=== PATIENT | female | born 1945 | race Caucasian/White ===

== ENCOUNTER 2024-04-28 07:59 | Inpatient (IN) | payer OTHER, SELFPAY ==
[2024-04-28] VITALS (49 sets, daily range): BP systolic 62–149; BP diastolic 25–104; BMI 26.2; BMI 28.9
--- NOTE | 2024-04-28 03:36 | DOWNTIME ---
There was a [employer] Downtime on 04/28/2024 from 0200 to 04/28/2024 at 0325 . Downtime documentation of patient's care, including medication administrations, has been reconciled in the electronic record per guidelines. Refer to the
patient's paper chart under the miscellaneous tab to see printed paper medication records and downtime forms.
--- NOTE | 2024-04-28 04:04 | ED.GENMED ---
History of Present Illness
General
Chief Complaint: Breathing Problem
Source: patient and previous hospital records (Previous hospitalization 2012 for bilateral pneumonia and COPD exacerbation. ED visit 2018 for leg injury, pain, found to have peroneal DVT.)
Exam Limitations: none
Time Seen by Provider: 04/28/24 03:57
Nursing documentation reviewed up to this point in time: agreed with
History of Present Illness
History of Present Illness:
This is a 78-year-old woman who resides at home. She has remote history of COPD, remote history of smoking and prior history of pneumonia requiring hospitalization 2011. She also has history of DVT left lower extremity 2018 after injury to her
ankle.
Along with history of COPD, she has history of osteoarthritis, hypertension, hyperlipidemia, restless leg syndrome, depression.
Her daily medications include omeprazole, fluoxetine, aspirin 325 mg, Advair, Toprol, Crestor, Requip, Altace, hydrochlorothiazide, as needed tramadol.
Prior history of smoking.
She presents with 2-day history of cough that has worsened with scant hemoptysis that began today along with right anterior lower rib pain that is much worse with deep breath and worse with cough. She denies fever nor chills. No sore throat nor
significant sinus congestion but does admit to mild clear rhinorrhea.
There is a family member at home reportedly suffering with pneumonia currently.
She denies recent travel. She denies leg pain or swelling. She complains of progressive shortness of breath especially over the past 24 hours.
Past History
Past History
ED Past Medical History: COPD, GERD, HTN, Hypercholesterolemia, Other (Restless leg syndrome; DVT left lower extremity 2018, bilateral pneumonia 2011) and Other (Osteoarthritis)
ED Past Surgical History: Gynecological (Hysterectomy)
Social History
Tobacco: Former smoker
Alcohol: Occasional
Drug: None
Personal:
Living: with family
Employment: Retired
Family History
Family History: Other (Noncontributory); Negative Early CAD or CAD
Phy Exam
Physical Exam
Physical Exam:
GENERAL: 78-year-old woman appears her stated age, appears in moderate distress, moderate tachypnea, intermittently wincing in pain with rare brief cough. Moderately hypoxic, improved with nasal cannula oxygen.
EYE: pupils equal and reactive. anicteric
NECK: Supple, nontender, no meningismus, no significant adenopathy. No JVD.
ENT: posterior pharynx is without injection, scant clear to pearly postnasal drip is noted, oral mucosa is dry. TM clear b/l, nares have scant clear rhinorrhea.
CARDIAC: Regular rhythm, tachycardic. no murmur.
LUNGS: Moderate respiratory distress, bilateral expiratory wheezing with fine rhonchi right lower lobe. Moderate tenderness palpation right anterolateral distal costal margin.
ABDOMEN: Soft, nondistended, without focal tenderness, no r/g, no cvat. normoactive BS.
NEUROLOGICAL: Alert and oriented x3, no focal neuro deficits.
SKIN: Warm and dry, normal color, skin intact. No rash.
MUSCULOSKELETAL: No C/C/E. peripheral pulses are full and equal b/l. No palpable tenderness.
PSYCH: Normal and appropriate interaction.
Scores
Heart Failure Risk
Heart Failure Risk Score: Not Applicable
Course
Orders/Labs/Results
Orders:
Orders
04/28/24 03:44
Electrocardiogram (*1) Urgent
Reason for Study: Other
Other Reason for Exam: Respiratory Distress
Cardiac Monitoring- Treatment ONCE
EKG- Treatment ONCE
IV Insert/Care/Rem.- Treatment PRN
O2 Therapy [RESP] Urgent
Titrate/Wean O2 to maintain O2 sat greater than (%): 93
Special Instructions: TO MAINTAIN CONTINUOUS O2 SATS >/= 93%
Pulse Ox/cont/shift [RESP] Urgent
Quantity: 1
Special Instructions: continuous pulse ox
04/28/24 03:45
Complete Blood Count/With Diff Urgent
04/28/24 04:03
Ipratropium/Albuterol Sulfate [Duoneb] 3 ml INH R NOW STA
Morphine Sulfate 4 mg IV NOW STA
04/28/24 04:04
CR Chest Portable - 1 View Urgent
Comment:
Reason For Exam: cough, severe pleuritic R CP, hypoxia
Reason Study Needs to be Portable: Patient Unstable
04/28/24 04:16
CT Chest Pe Study Urgent
Comment:
Reason For Exam: severe pleuritic R CP, hemoptysis, hypoxia
0.9% Sodium Chloride 1000 ml [Nss] 1,000 ml IV BOLUS
04/28/24 04:24
COVID-19 Antigen Urgent
Source: Nasal Swab
Comprehensive Metabolic Panel Urgent
Lactic Acid Urgent
NT-proBNP Urgent
Troponin I Urgent
Influenza A+B Rapid Molecular Urgent
SHAWANDA Source: Nasal Swab
Specimen Description:
Respiratory Syncytial Virus Urgent
SHAWANDA Source: Nasal Swab
Specimen Description:
Date Specimen was Collected: 04/28/24
Time Specimen was Collected: 04:04
04/28/24 05:02
Morphine Sulfate 4 mg .ROUTE .STK-MED ONE
04/28/24 05:06
Morphine Sulfate 4 mg IV NOW STA
04/28/24 05:[address] Non Medication Order As Directed
Physician Order: PTT 6 hours after initial start of Heparin infusion
Above order entered?: Yes
04/28/24 05:52
PTT Urgent
Comment: Obtain baseline before beginning heparin infusion if not already collected
04/28/24 06:00
Heparin 50174 Units/250 ml 25,000 units in 250 ml IV PER PROTOCOL
Weight to be used for heparin protocol in kilograms (kg):: 73.6
Protocol:: DVT/PE
PTT Goal Range to be used:: PTT 73 to 111 seconds
Order type:: Initial
INITIAL Infusion Dose (UNITS/KG/hr) & then follow protocol:: 18 units/kg/hr
Infusion Dose in UNITS/hr & then follow protocol (UNITS/hr):: 1,300
INFUSION RATE in mL/hr & then follow protocol (mL/hr):: 13
For DVT/PE algorithm, re-bolus for low PTT?: Yes
PTT less than or equal to 64 seconds:: Re-bolus 80 units/kg (max 10,000units). Increase by 300 units/hr
(+ 3mL/hr)
PTT 64.1 to 72.9 seconds:: Re-bolus 40 units/kg (max 5,000 units). Increase by 200 units/hr
(+ 2mL/hr)
PTT 73 to 111 seconds:: Target Range. No change in rate.
PTT 111.1 to 130.9 seconds:: Decrease rate by 200 units/hr (- 2 mL/hr)
PTT 131 to 199.9 seconds:: HOLD for 1 hr. Then decrease by 200 units/hr (- 2mL/hr)
PTT greater than or equal to 200 seconds:: HOLD for 2 hrs & Notify Provider. Then decrease by 300 units/hr
(- 3mL/hr)
Lab follow-up:: Each change, PTT q6h until 2 consecutive are therapeutic. Then
PTT daily.
04/28/24 06:08
Morphine Sulfate 4 mg IV NOW STA
04/28/24 06:11
Admit/Transfer Patient As Directed
Co-Sign Provider:
Level of Care: Inpatient admission
Assign to:: ICU
Physician / Group: Hospitalist
Diagnosis: Pulmonary embolism
Reason for Hospitalization: Pulmonary embolism
Expected length of stay greater than two midnights?: Yes
ELOS- Estimated Length of Stay in days: 2
I certify the patient meets the requirements for IP care: Yes
04/28/24 06:12
PRN Pain Medication Management As Directed
May give lesser potent ordered pain med per pt: Yes
preference::
Protocol:: Medication orders for pain may be administered in a
manner that supports deferring to patient preference
when the pt is:
- Requesting an ordered lesser potent pain medication.
Least to most potent pain medications are defined
as: acetaminophen < NSAID < tramadol < opioids
(morphine, oxycodone, hydromorphone).
- Requesting a lesser dose of the same medication IF
ORDERED.
- Requesting a less intrusive route of administration
if both routes are prescribed by the provider (PO <
IV).
04/28/24 06:13
Heparin 5,900 units IV NOW STA
04/28/24 06:14
Code Status As Directed
Resuscitation Status: Do not resuscitate
Reached after discussion with pt or family/Healthcare POA: Yes
DNR Bracelet Application ONCE
04/28/24 06:15
Heparin 40473 Units/250 ml 25,000 units in 250 ml IV PER PROTOCOL
Weight to be used for heparin protocol in kilograms (kg):: 73.6
Protocol:: DVT/PE
PTT Goal Range to be used:: PTT 73 to 111 seconds
Order type:: Initial
INITIAL Infusion Dose (UNITS/KG/hr) & then follow protocol:: 18 units/kg/hr
Infusion Dose in UNITS/hr & then follow protocol (UNITS/hr):: 1,300
INFUSION RATE in mL/hr & then follow protocol (mL/hr):: 13
For DVT/PE algorithm, re-bolus for low PTT?: Yes
PTT less than or equal to 64 seconds:: Re-bolus 80 units/kg (max 10,000units). Increase by 300 units/hr
(+ 3mL/hr)
PTT 64.1 to 72.9 seconds:: Re-bolus 40 units/kg (max 5,000 units). Increase by 200 units/hr
(+ 2mL/hr)
PTT 73 to 111 seconds:: Target Range. No change in rate.
PTT 111.1 to 130.9 seconds:: Decrease rate by 200 units/hr (- 2 mL/hr)
PTT 131 to 199.9 seconds:: HOLD for 1 hr. Then decrease by 200 units/hr (- 2mL/hr)
PTT greater than or equal to 200 seconds:: HOLD for 2 hrs & Notify Provider. Then decrease by 300 units/hr
(- 3mL/hr)
Lab follow-up:: Each change, PTT q6h until 2 consecutive are therapeutic. Then
PTT daily.
04/28/24 06:56
EKG [Electrocardiogram (*1)] Urgent
Reason for Study: Abnormal EKG
04/28/24 06:57
EKG- Treatment ONCE
04/28/24 07:00
0.9% Sodium Chloride 500 ml [Nss] 500 ml IV BOLUS
04/28/24 07:02
Adenosine [Adenocard] 18 mg .ROUTE .STK-MED ONE
04/28/24 07:04
HYDROmorphone [Dilaudid] 0.5 mg .ROUTE .STK-MED ONE
HYDROmorphone [Dilaudid] 0.5 mg IV NOW STA
04/28/24 07:06
Adenosine [Adenocard] 6 mg IV NOW STA
04/28/24 07:07
Adenosine [Adenocard] 12 mg IV NOW STA
04/28/24 07:09
Diltiazem 125 mg/125 ml Nss [Cardizem] 125 mg in 125 ml .ROUTE .STK-MED
Diltiazem HCl [Cardizem] 25 mg .ROUTE .STK-MED ONE
04/28/24 07:10
Diltiazem HCl [Cardizem] 15 mg IV NOW STA
04/28/24 07:26
0.9% Sodium Chloride 500 ml [Nss] 500 ml IV BOLUS
04/28/24 07:30
0.9% Sodium Chloride 1000 ml [Nss] 1,000 ml IV 150 mls/hr
Diltiazem 125 mg/125 ml Nss [Cardizem] 125 mg in 125 ml IV PER PROTOCOL
Initial dose in mg/hr, then titrate:: 5
Titrate to keep:: Heart rate 80-100 bpm
Titrate by mg/hr:: 5 mg/hr
Frequency of titrations (minutes):: 15
Maximum dose in mg/hr:: 15
04/28/24 07:41
Dexamethasone Sod Phosphate [Decadron] 6 mg IV NOW STA
Piperacillin/Tazo 3.375 Gram [Zosyn] 3.375 gram in 50 ml IV NOW
04/28/24 07:46
Doxycycline 100 mg IVPB NOW Doxycycline Hyclate [Vibramycin] 100 mg 0.9% Sodium Chloride 250 ml [Nss] 250 ml IV NOW
04/28/24 07:47
Arterial Blood Gas Urgent
%Oxygen/Room Air: NRB
04/28/24 07:48
PICC Line As Directed
04/28/24 08:00
Piperacillin/Tazo 3.375 Gram [Zosyn] 3.375 gram in 50 ml IV Q6H
04/28/24 12:15
PTT Urgent
Comment: 6 hour heparin PTT check
Abnormal Lab Results
04/28/24 04/28/24 04/28/24
03:45 04:24 05:52
WBC 23.8 H 10^3/uL
(4.8-10.8)
MCH 31.9 H pg
(27.0-31.0)
Abs Immat Gran (auto) 0.1 H 10^3/uL
(0-0.05)
Absolute Neuts (auto) 18.7 H 10^3/uL
(1.4-6.5)
Absolute Monos (auto) 2.7 H 10^3/uL
(0.1-0.6)
Neutrophils % 78.5 H %
(42.2-75.2)
Lymphocytes % 9.2 L %
(20.5-51.1)
Monocytes % 11.4 H %
(1.7-9.3)
APTT 38.0 H Sec
(23.4-35.0)
Carbon Dioxide 20 L mmol/L
(22-30)
BUN 28 H mg/dl
(7-17)
Creatinine 1.3 H mg/dL
(0.6-1.0)
Glucose 134 H mg/dl
(70-99)
Lactic Acid 2.1 H mmol/L
(0.7-2.0)
Alkaline Phosphatase 137 H U/L
(38-126)
Troponin I 0.090 H* ng/ml
04/28/24 03:45
04/28/24 04:24
Vital Signs
Initial and Last Documented VS:
Initial Vital Signs
Temp Pulse Resp BP Pulse Ox
98.2 F 116 16 118/83 100
04/28/24 01:34 04/28/24 01:34 04/28/24 01:34 04/28/24 01:34 04/28/24 01:34
Last Documented Vital Signs
Temp Pulse Resp BP Pulse Ox
98.2 F 202 19 106/69 99
04/28/24 01:34 04/28/24 07:11 04/28/24 06:30 04/28/24 07:11 04/28/24 06:30
MDM/Problems Addressed
Differential Diagnosis Includes:
Concern for pneumonia, pleurisy, PE, pleural effusion, chest wall strain, exacerbation of COPD. CHF, ACS is much less likely.
Although afebrile and patient denies recent fever there is some concern for sepsis with pneumonic process.
Will give DuoNeb nebulizer, IV morphine for pain and will check portable chest x-ray. Labs are pending. Will check COVID, influenza and RSV. Will add lactic acid.
With prior history of DVT in 2018, pleuritic right-sided chest pain along with hemoptysis, must consider PE/pulmonary infarct thus if chest x-ray underwhelming we will plan for CT of the chest.
Chronic conditions affecting care: COPD
*Radiology
Radiology exam reviewed: preliminary read by ED provider (Chest x-ray shows mild interstitial disease inferiorly questionable small patchy infiltrate right lower lobe but otherwise unremarkable.) and radiology read reviewed
*Pulse Oximetry
Patient hypoxic: yes
*EKG
Interpreted by ED Provider?: Yes
Interpretation: abnormal
Comparison EKG: no changes (Baseline artifact but overall unchanged from previous April 2021)
Rate: tachycardiac
Rhythm: sinus and PVC's
Dahlgren: left axis deviation
Interval: normal interval
QRS Pattern: normal QRS
Ischemia: non-specific ST changes
*Visitor Services Representative Interpretation
Rate: tachycardiac
Interpretation: abnormal
Rhythm: sinus
*Critical Care Note
Total Time (30-74mins, 75-104mins- exclusive of procedures): 100
comment:
Critical care statement: A total of 100 minutes of critical care time was provided for this patient. This includes management of unstable vital signs, evaluation of the patient at bedside, reviewing the patient's pertinent medical records,
discussion with consultants, review of old EKGs and review of pertinent medical records. This time with separate from time utilized to perform the aforementioned documented procedures
Update Note
Update Note:
CT of the chest/preliminarily read by myself shows bilateral PEs. No evidence of saddle embolus but with mildly elevated troponin 0.09, concern for right heart strain thus will initiate IV heparin.
Case discussed with hospitalist.
Awaiting official CT report. May require PERT alert/IR consult for potential thrombectomy.
She remains moderately tachypneic with pulse ox 93% on 4 to 6 L nasal cannula. We have transition to nonrebreather mask, now much more comfortable.
Much more comfortable with IV morphine as well.
06:05
CAT scan results shows extensive bilateral PEs with moderate to severe right heart strain. PERT alert initiated. Case discussed with vinyl installer and I have texted IR�IR aware.
IV heparin initiated.
07:30
Patient has developed tacky arrhythmia, initially sinus tach versus rapid A-fib. Briefly broke to normal sinus rhythm but has returned with heart rate 170-190 accompanied hypotension.
Heart rate briefly slowed with IV Adenocard but has resumed tachyarrhythmia which now appears to be A-fib in nature.
After IV fluid bolus of 500 cc blood pressure has improved.
Hospitalist at bedside.
IV Cardizem bolus and drip initiated.
Several text's to IR: vinyl installer has been notified of change in condition, has now become significantly unstable.
ED Attending Note
-
Portions of this chart may have been created with voice recognition software.� Occasional wrong word or��sound alike� substitutions may have occurred due to the inherent limitations of voice recognition software.
Discharge Plan
Departure
Patient Disposition: Admit
Date of Disposition: 04/28/24
Time of Disposition: 05:51
Admit to doctor: Darrell
Presentation/result/management discussed w/ accepting MD/DO: Hospitalist
Condition: Serious
Discharge Problem:
Pulmonary embolism, bilateral
Prescriptions:
No Action
ropinirole 1 MG tablet
5 mg PO HS
metoprolol succinate 100 MG tablet extended release 24 hr
100 mg PO DAILY
fluoxetine 10 MG capsule
10 mg PO DAILY
hydrochlorothiazide 25 MG tablet
25 mg PO DAILY
ramipril 10 MG capsule
10 mg PO DAILY
rosuvastatin 10 MG tablet
10 mg PO QPM
Referrals:
UNKNOWN - PT DOES,NOT KNOW [Family Provider] -
Interventions
Interventions:
*Risk Screen - Suicide Last Done: 04/28/24 01:34
*General Assessment Last Done: 04/28/24 03:53
*Neglect/Abuse Screening Last Done: 04/28/24 01:34
*ED COVID-19 Vaccine History Last Done: 04/28/24 03:53
ED- Cardiac Assessment Last Done: 04/28/24 03:50
ED- Pulmonary Assessment Last Done: 04/28/24 03:50
Discharge Date and Time
Print Language: NICARAGUAN
[2024-04-28] MEDS: MORPHINE SULFATE 4 MG IV ×3 (04:07→06:18)
[2024-04-28] MEDS: DUONEB 3 ML INH ×2 (04:07→20:22)
[2024-04-28 04:12] LABS: % Basophils 0.4 % (0-2); % Immature Granulocytes 0.5 % (0-0.5); % Lymphocytes 9.2 % (20.5-51.1); % Monocytes 11.4 % (1.7-9.3); % Neutrophils 78.5 % (42.2-75.2); Absolute Basophils 0.1 10^3/uL (0-0.2); Absolute Immature Granulocytes 0.1 10^3/uL (0-0.05); Absolute Lymphocytes 2.2 10^3/uL (1.2-3.4); Absolute Monocytes 2.7 10^3/uL (0.1-0.6); Absolute Neutrophils 18.7 10^3/uL (1.4-6.5); Hematocrit 45.1 % (37.0-47.0); Hemoglobin 15.1 g/dL (12.0-16.0); Mean Corp Hgb Conc. 33.5 g/dL (33.0-37.0); Mean Corpuscular Hgb 31.9 pg (27.0-31.0); Mean Corpuscular Volume 95.1 fL (81.0-99.0); Mean Platelet Volume 9.4 fL (7.4-10.4); Nucleated Red Blood Cells % 0 %; Platelet Count 263 10^3/uL (130-400); Red Blood Cell Count 4.74 10^6/uL (4.20-5.40); Red Cell Dist. Width 12.8 % (11.5-14.5); White Blood Cell Count 23.8 10^3/uL (4.8-10.8)
[2024-04-28] MEDS: NSS 1000 IV ×2 (04:31→12:00)
[2024-04-28 05:01] LABS: COVID-19 Antigen Negative (Negative)
[2024-04-28 05:04] LABS: Lactic Acid 2.1 mmol/L (0.7-2.0)
[2024-04-28 05:14] LABS: ALT (SGPT) 22 U/L (0-35); AST (SGOT) 22 U/L (14-36); Albumin 4.3 g/dl (3.5-5.0); Alkaline Phosphatase 137 U/L (38-126); Blood Urea Nitrogen 28 mg/dl (7-17); Calcium 9.9 mg/dl (8.4-10.2); Carbon Dioxide 20 mmol/L (22-30); Chloride 103 mmol/L (98-107); Estimated Creatinine Clearance 34 ml/min; Glucose 134 mg/dl (70-99); Potassium 3.6 mmol/L (3.5-5.1); Sodium 139 mmol/L (135-145); Total Protein 7.6 g/dl (6.3-8.2); eGFR 42.35
[2024-04-28 05:39] LABS: NT-proBNP 7360 pg/ml
[2024-04-28] MEDS: HEPARIN 5900 UNITS IV (06:12)
[2024-04-28] MEDS: HEPARIN 25000 UNITS/250 ML IV (06:14)
--- NOTE | 2024-04-28 06:43 | HPS.HSE ---
Family Physician
-
Family Physician: NOT KNOW UNKNOWN - PT DOES
Chief Complaint
-
Shortness of breath.
History of Present Illness
This is a 78-year-old with past medical history significant for COPD, hypertension, hyperlipidemia, restless leg presenting to the emergency department with 2-day history of cough, scanty mopped assist and chest pain.
Patient reports been in usual state of health up until 2 days ago when she started noticing cough productive of scanty mopped assist. There was no mucus production. She had no fevers or chills. She reports mild rhonrrhea. She denied feeling
congestion, postnasal drip headache, ear ache, nausea vomiting or diaphoresis. She reports that today the cough worsened and she developed right sided lower anterior chest pain that is worse with inspiration. She reports a family member with
suffering from pneumonia.
In ED she arrived with a BP of 149/101, p 114,and oxygen saturation of 89% on RA. ECG showed sinus tachycardia. Chest Xray with moderate atelectasis. CT with extensive bilateral pulmonary emboli involving all lobar branches, no embolus within the
main pulmonary trunk on either side, evidence of right heart strain and moderate centrilobular emphysema. PERT alert called. WBC 23.8, Lactate 2.1. BNP 2300.
Medical History
Past Medical History
Past Medical History: Reports COPD (not on home O2), GERD, HTN and Hypercholesterolemia
Additional Past Medical History:
Restless leg
Superficial venous thromboembolism
Past Surgical History: Reports Gynocological (Hysterectomy)
Social History
Tobacco: Former Smoker
Alcohol: Occasional
Drug: None
Personal: Single
Living: Alone
Employment: Retired
Family History
Family History: Not pertinent
Allergies / Home Medications
Allergies reflects when Allergies were last updated in [facility].
Home Medications with original date entered in [facility]
Allergy/Medication List:
Allergies
Allergy/AdvReac Type Severity Reaction Status Date / Time
codeine Allergy Unknown Verified 04/28/24 01:34
Home Medications
tkkyzzu-eadclceudjbvs-eujvzbvy 250 mg-250 mg-65 mg tablet (Excedrin Extra Strength) 2 ea PO PRN PRN migraines 07/24/11
ropinirole 1 mg tablet 5 mg PO HS 07/24/11
rosuvastatin 5 mg tablet 20 mg PO QPM 07/24/11
azelastine 137 mcg (0.1 %) nasal spray 1 spray intranasal BID 05/05/21
clobetasol-emollient 0.05 % topical cream 15 gm TP DAILY 05/05/21
yurnwhevyt-ouvnctcbbzvlghm-urlkuoermsskl 6.25 mg-30 mg-500 mg tablet 1 tab PO HS 05/05/21
fluoxetine 10 mg capsule 10 mg PO DAILY 05/05/21
hydrochlorothiazide 25 mg tablet 25 mg PO DAILY 05/05/21
meclizine 25 mg tablet 25 mg PO Q8HPRN PRN dizzy #15 tabs 05/05/21
methylprednisolone 4 mg tablets in a dose pack (Medrol (Amadou)) 4 tab PO . DIRECT 05/05/21
metoprolol succinate 100 mg tablet,extended release 24 hr 100 mg PO DAILY 05/05/21
omeprazole 20 mg capsule,delayed release 20 mg PO DAILY 05/05/21
ramipril 10 mg capsule 10 mg PO DAILY 05/05/21
rosuvastatin 10 mg tablet 10 mg PO QPM 05/05/21
tramadol 50 mg tablet 50 mg PO Q6HPRN PRN pain 05/05/21
Review of Systems
-
Constitutional: Reports No Symptoms
EENT: Reports No Symptoms
Respiratory: Reports Cough, Hemoptysis and Trouble Breathing
Cardiac: Reports Chest Pain
Abdomen/GI: Reports No Symptoms
: Reports No Symptoms
Musculoskeletal: Reports No Symptoms
Skin: Reports No Symptoms
Neurological: Reports No Symptoms
Endocrine: Reports No Symptoms
Hematologic/Lymphatic: Reports No Symptoms
Psych: Reports No Symptoms
Physical Exam
Vital Signs
Vital Signs
Temp Pulse Resp BP Pulse Ox
98.2 F 108 19 137/97 99
04/28/24 01:34 04/28/24 06:30 04/28/24 06:30 04/28/24 06:00 04/28/24 06:30
Physical Exam
General: Respiratory Distress and Pain
HEENT: NormoCephalic, Anicteric, Moist mucous membranes, Atraumatic and PERRLA
Respiratory: Clear and Accessory Resp Muscle Use
Cardiac: S1/S2, Regular Rhythm and Tachycardia
Breast: Deferred by me
GI: Soft, Non Distended and Normal Bowel Sounds
Rectal: Deferred by Provider
Genito-urinary: Deferred by me
Musculoskeletal: No Clubbing, No Cyanosis and No Edema
Skin: Warm
Neuro: AO x 3
Hematologic/Lymphatic: No Lymphadenopathy
Psych: Calm
Laboratory Results
-
04/28/24 03:45
04/28/24 04:24
Laboratory Results
APTT 38.0 Sec (23.4-35.0) H 04/28/24 05:52
Lactic Acid 2.1 mmol/L (0.7-2.0) H 04/28/24 04:24
Total Bilirubin 1.0 mg/dl (0.2-1.3) 04/28/24 04:24
AST 22 U/L (14-36) 04/28/24 04:24
ALT 22 U/L (0-35) 04/28/24 04:24
Alkaline Phosphatase 137 U/L (38-126) H 04/28/24 04:24
Troponin I 0.090 ng/ml H* 04/28/24 04:24
Data Reviewed
-
Diagnostic Radiology: Image Personally Visualized and interpreted
CT Scan: Report Reviewed by me
Medical Tests (Nuc Med, Echo, EKG etc): Image Personally Visualized and interpreted
Lab Data: Labs Reviewed by me
Old Records: Reviewed
Impression/Plan
-
IMPRESSION:
Patient with shortness of breath and dyspnea on exertion chest pain found to have hypoxia, bilateral PE with right heart strain on CT scan. She is on increasing oxygen requirements.
PLAN:
Bilateral PE - submassive pe with elevated troponin and right heart strain. High oxygen requirements likely due to ongoing pulm infarct. HD stable.
- PERT alert called
- admit to ICU
- started heparin gtt
- non-rebreather due to high work of breathing, nrb to keep sat >95 and RR < 30, wean as tolerated
- pain control with IV morphine
- gi ppx
- check LE u/s when more stable
- possible procedure, NPO for now
- holding antihypertensives today to restart tomorrow am
- no obvious risk factors and no provoking events. Patient reports prior SVT, not anticoagulated.
- pulm/commercial title examiner and IR aware.
Non-ischemic myocardia injury suspected - Trop 0.09
- trend troponins
- echo
- continue statin
COPD - negative flu/covid, leukocytosis w/o obvious infiltrates
- prn nebs
Code status - DNR
[2024-04-28] MEDS: DILAUDID 0.5 MG IV (07:05)
[2024-04-28] MEDS: ADENOCARD 6 MG IV (07:06)
[2024-04-28] MEDS: CARDIZEM 15 MG IV (07:11)
[2024-04-28] MEDS: CARDIZEM 125 IV (07:13)
[2024-04-28] MEDS: NSS 500 IV ×3 (07:26→08:18)
--- NOTE | 2024-04-28 07:54 | W.PN.HOSP.TC ---
Today's Communication/Plan
-
Verify medicines
Place a midline
IV steroids
IV antibiotics
Heart rate control
Thrombosis
Pain control
Assessment / Plan
Assessment / Plan
78-year-old female admitted overnight with shortness of breath. She has had a cough also had some hemoptysis. Patient stated that her granddaughter was sick with pneumonia
Patient was diagnosed with bilateral PE in the ER. She then went into SVT required 2 doses of adenosine and then rhythm looked like A-fib was given diltiazem bolus as well as a drip was started. Patient complained of right-sided rib pain and was
very short of breath. IV fluids were started.
CT chest-extensive bilateral PE involving lobar branches no embolism in the main pulmonary trunk or either side. Right heart strain. Moderate centrilobular emphysema. Bibasilar groundglass opacities related to subsegmental atelectasis. Trace
right pleural effusion.
On examination tachypneic
Bilateral rales noted
Cardiovascular system S1-S2 tachycardic
Abdomen soft and nontender
No pedal edema
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
# Acute hypoxic respiratory failure
Bilateral pulmonary embolism with right heart strain
Currently on a nonrebreather
CT scan reviewed with interventional radiology feels like PE is not saddle or occlusive and more peripheral not sure if she will be a candidate for thrombectomy. Thrombolysis possible.
Other reasons for her hypoxia shortness of breath could be pain, infection with a white count of 23K, COPD exacerbation.
Patient received morphine 3 mg along with half milligram of Dilaudid. Continue pain control.
Start steroids Decadron 6 mg IV now with 4mg every 6 to treat COPD exacerbation.
Zosyn and doxycycline ordered.
With elevated white count blood cultures ordered
Sputum culture if possible
COVID-19, influenza and RSV negative
Venous Dopplers
Check ABG
On heparin drip
Pulmonary consulted
# SVTs versus A-fib
Rates are too rapid to comment
Patient received adenosine x 2. Broke and went into A-fib
On diltiazem drip
On heparin drip
Follow troponin
Continue metoprolol
Check echo when heart rate is better
Cardiology has been consulted
# Troponin elevation likely secondary to nonischemic myocardial injury from PE
# Acute kidney injury-unclear if she also has CKD . IV fluids. Follow creatinine
# Mild lactic acidosis-IV fluids. Recheck
# History of hypertension-Hold off on ramipril and hydrochlorothiazide. Continue metoprolol. Verify meds
# Depression-Hold fluoxetine until verified
# Restless leg syndrome-Hold off on Requip until verified
# Hyperlipidemia-Hold off on statin and verified
# Emphysema
# GERD-added IV PPI
# Herniated disc L5-S1
# History of DVT in the past
# DVT prophylaxis-heparin IV
# Full code
Discussed with ER nursing, ER attending, interventional radiology, mobile pet groomer
CT and EKG reviewed by me
Patient's son updated in detail. He is aware that mom is critically ill at this point with multiple medical problems.
Total Critical Care Time 40 minutes. I was immediately available to the patient and staff. I personally examined, reviewed labs, diagnostic images/reports, interpretations, treatment plans, discussed patient care with other providers and family
or caregivers (if patient is unable to make decisions), entered orders as appropriate and documented the medical record.
Anticipated Discharge: > 48 hours
Subjective/Interval History
-
Date of Service: April 28, 2024
Objective Data
-
Labs:
Laboratory Results
04/28/24 04/28/24 04/28/24
03:45 04:24 05:52
WBC 23.8 H
Hgb 15.1
Hct 45.1
Plt Count 263
APTT 38.0 H
HCO3
Sodium Cancelled 139
Potassium Cancelled 3.6
Chloride Cancelled 103
Carbon Dioxide Cancelled 20 L
BUN Cancelled 28 H
Creatinine Cancelled 1.3 H
Glucose Cancelled 134 H
Calcium Cancelled 9.9
Total Bilirubin Cancelled 1.0
AST Cancelled 22
ALT Cancelled 22
Alkaline Phosphatase Cancelled 137 H
04/28/24 04/28/24
07:47 12:15
WBC
Hgb
Hct
Plt Count
APTT Pending
HCO3 Pending
Sodium
Potassium
Chloride
Carbon Dioxide
BUN
Creatinine
Glucose
Calcium
Total Bilirubin
AST
ALT
Alkaline Phosphatase
Vital Signs:
Vital Signs
Temp Pulse Resp BP Pulse Ox
98.2 F 167 26 114/88 93
04/28/24 01:34 04/28/24 07:45 04/28/24 07:45 04/28/24 07:46 04/28/24 07:42
[2024-04-28] MEDS: TORADOL 15 MG IV (08:01)
[2024-04-28] MEDS: DILAUDID 1 MG IV (08:05)
[2024-04-28] MEDS: DECADRON 6 MG IV (08:07)
--- NOTE | 2024-04-28 08:27 | PTCARENOTE ---
07:58 admitted from ER Admitted DX B/L PE .
Arrived on NRM 15L; Heparin at via Lower FA; Cardizem 15ml via RT AC .
RT side pleural like pain 10/10 pain scale level . Dilaudid 0.5 +Toradol +Demadex adm ; Post medications pt reports some pain improvement
VS: 98/[address] RR 30's 95%
[2024-04-28 08:49] LABS: B.E. -10.1 mmol/L; HCO3 16.7 mmol/L (21-28); O2 Saturation % 96.7 % (94-98); PCO2 39 mmHg (32-35); PO2 80 mmHg (83-108); pH 7.24 (7.35-7.45)
[2024-04-28] MEDS: OFIRMEV 100 IV (09:23)
--- NOTE | 2024-04-28 10:17 | CON.INTV ---
Consultation
Consultation Request
Date/Time Consultation Requested: 04/28/2024
Date/Time Consultation Performed: 04/28/2024
Requesting Provider: Dr. Rocha
Performing Provider: Dr. Cameron Su
Reason for Consultation: Acute submassive pulmonary embolism
Medical History
-
History of Present Illness:
78-year-old woman with past medical history significant for COPD/emphysema, hypertension, hyperlipidemia, restless leg syndrome presented to the emergency room with 2-day history of cough, chest pain and shortness of breath. Previous to this she
was in her usual state of health. Denies significant hemoptysis. Denies fevers or chills. Denies expiratory wheezing. Denies leg edema. Her chest pain became severe on 04/28/2024, worsened with deep inspiration. What prompted her to come to
the emergency room. She reports that a family member is having pneumonia.
Found to be hypertensive, tachycardic, and significant distress, oxygen saturation 89% in the emergency room. EKG with sinus tachycardia.
Chest x-ray showed bibasilar atelectasis. CT chest to rule out pulmonary embolism confirmed bilateral pulmonary embolism without saddle component. Possible RV dysfunction.
Mild troponin leak. Increased proBNP.
PERT alert was called in, I did discuss with emergency room to start heparin drip immediately. Under evaluation for possible thrombolysis.
Reviewing CT angiogram has no saddle component. Patient is in distress, tachycardic due to significant pleuritic type chest pain.
Receiving narcotics for pain.
On a nonrebreather mask for comfort, her saturations are above 90%.
proBNP is elevated as well as mild troponin leak.
Past Medical History
Past Medical History: Other (See assessment and plan)
Social History
Tobacco: Former Smoker
Alcohol: Occasional
Drug: None
Personal: Single
Living: Alone
Employment: Retired
Family History
Family History: Unable to Obtain
Allergies / Home Medications
Allergies
Allergy/AdvReac Type Severity Reaction Status Date / Time
codeine Allergy Unknown Verified 04/28/24 01:34
Home Medications
�Medication �Instructions �Recorded �Confirmed �Last Taken �Type
ropinirole 1 mg tablet 5 mg PO HS 07/24/11 05/05/21 07/23/11 History
fluoxetine 10 mg capsule 10 mg PO DAILY 05/05/21 05/05/21 Unknown History
hydrochlorothiazide 25 mg tablet 25 mg PO DAILY 05/05/21 05/05/21 Unknown History
metoprolol succinate 100 mg 100 mg PO DAILY 05/05/21 05/05/21 Unknown History
tablet,extended release 24 hr
ramipril 10 mg capsule 10 mg PO DAILY 05/05/21 05/05/21 Unknown History
rosuvastatin 10 mg tablet 10 mg PO QPM 05/05/21 05/05/21 Unknown History
Review of Systems
-
Unable to Obtain full review of systems at this time due to: Acuity (Her main complaint was pleuritic type chest pain and difficulty taking a deep breath.)
Vitals / Labs / Diagnostic Testing
Vital Signs
Temp Pulse Resp BP Pulse Ox
98.6 F 183 21 96/72 93
04/28/24 08:00 04/28/24 08:32 04/28/24 08:32 04/28/24 08:32 04/28/24 08:41
Lab Data
04/28/24 03:45
04/28/24 04:24
Laboratory Results
04/28/24 04/28/24
05:52 08:36
APTT 38.0 H
pH 7.24 L
pCO2 39 H
pO2 80 L
HCO3 16.7 L
O2 Delivery Level
Microbiology
04/28/24 04:24 Nasal Swab Influenza Types A & B ([facility]ANIA) - Final
Negative for Influenza A & B, NAAT
Negative results must be combined with clinical observations
and patient history.
Nucleic Acid Amplification test (NAAT)performed on the
[employer] platform.
04/28/24 04:24 Nasal Swab Respiratory Syncytial Virus Culture - Final
Negative for Respiratory Syncytial Virus.
A false negative result may be obtained with a specimen
collected early in the acute phase. If symptoms persist, a
new specimen should be tested.
Diagnostic Testing:
Physical Exam
-
HEENT: Normocephalic
Cardiovascular: S1/S2 and Other (Tachycardic)
Respiratory: Clear and Other (Difficult exam due to significant pleuritic type chest pain with splinting.)
GI: Soft and Non Distended
Neurology: Awake, Alert and Other (Follows commands)
Skin: Warm
General: Respiratory Distress (Significant due to pleuritic type chest pain)
Assessment
-
78-year-old woman with past medical history noted, admitted through the emergency room with cough, right-sided pleuritic type chest pain, mild hypoxemia, shortness of breath for the last 2-day. Started acutely. She was on her previous normal state
of health prior to this.
Acute hypoxemic respiratory failure due to submassive pulmonary embolism-currently on nonrebreather mask
Positive troponin
Positive proBNP
Sinus tachycardia on EKG
CT chest reviewed: Reviewed, bilateral segmental pulmonary embolism. No saddle component. Evidence for RV dysfunction. Right lower lobe abnormality suggestive of possible pulmonary infarct versus pneumonia.
Severe right-sided pleuritic type chest pain due to likely pulmonary infarct
Cannot rule out pneumonia: Leukocytosis/coughing-sick contact at home.
Metabolic acidosis-mildly increased lactic acid
Leukocytosis
Acute kidney injury
Conditions present prior admission:
GERD
Hypertension
Hypercholesterolemia
Emphysema/COPD-not on inhalers
Restless leg syndrome
Previous superficial vein thrombosis in the past
Former smoker
History of hysterectomy
History of fatty liver
Denies family history of clotting.
-
Assessment and plan:
Patient is critically ill, transferred to the ICU for close monitoring.
In significant distress due to severe right-sided pleuritic type chest pain.
Tachycardic but not hypotensive.
On a nonrebreather mask for comfort.
Pulse ox is 99%.
-
Case has been discussed with interventional radiology: No indication for thrombectomy as there is no saddle component.
Patient has a high risk situation-increased troponin/increased proBNP..
Consider heparin drip for now per protocol. Follow PTT.
May consider catheter directed thrombolysis if tachycardia is persistent despite pain control.
Echocardiogram is pending-evaluate RV function.
Obtain lower extremity Dopplers
Cardiology has been consulted, case discussed.
-
Patient has metabolic acidosis with mild increased lactic acid-unclear whether this is related to pulmonary infarct versus sepsis.
Agree with antibiotics to treat community-acquired pneumonia
Will send for cultures
Continue IV fluids
Repeat BMP and lactic acid later today
-
Continue oxygen supplementation.
Patient has history of COPD/emphysema-difficult pulmonary exam due to splinting and pain.
For now agree with steroids but low threshold to discontinue if she clinically improved without bronc spasm.
She did receive a nebulizer in the emergency room. Hold for now, limit beta agonist due to tachycardia.
-
Ongoing sinus tachycardia due to pain and likely pulmonary embolism.
Hold off on Cardizem or beta-blockers for now, this is compensatory.
EKG with narrow complex.
Cardiology following. Discussed, no indication for any specific therapy other than support and anticoagulation.
-
Analgesia with narcotics, Dilaudid as needed.
IV Tylenol as needed
1 dose of Toradol was given
Will continue to monitor respiratory status closely.
ABG suggest some degree of respiratory acidosis but patient is mentating well, has good respiratory effort.
Not a candidate for noninvasive mechanical ventilation
Will place end-tidal CO2 and monitor closely.
-
High risk situation.
-
Case has been discussed with primary team, interventional radiology, cardiology.
Multiple bedside evaluations by myself due to her tachycardia, pain and instability.
-
Critical care statement: A total of 80 minutes of critical care time was provided for this patient today. This includes management of unstable vital signs, evaluation of the patient at bedside, reviewing the patient's pertinent medical records
including ventilator settings, arterial blood gases, radiographs, microbiology, laboratory evaluations and discussion with primary team, critical care nursing, and respiratory therapy.
--- NOTE | 2024-04-28 10:48 | W.PN.UPDATE ---
Update Note
Progress Note Update
Patient reevaluated.
Her pain has improved. She looks more comfortable.
Remains tachycardic with narrow complex.
Apparently she was started on Cardizem, will discontinue. Heart rate is compensatory.
Wait for echocardiogram.
I will discuss with Dr. Saxena possibility of catheter directed thrombolysis.
I have discussed with her daughter and son at the bedside. Extensive discussion regarding current situation, images reviewed with them.
For now continue with current care
-
Additional critical care time 20 min
[2024-04-28] MEDS: VIBRAMYCIN 260 MG IV ×2 (10:59→19:32)
[2024-04-28 11:00] LABS: Lactic Acid 1.5 mmol/L (0.7-2.0)
--- NOTE | 2024-04-28 11:07 | PTCARENOTE ---
Blood culture x 2 send collected from two different sites. LA and Troponin send results pending. Cardizem off per current order BP 80/59 ST 148; RR 17 POX 96%NRM . AAO x3 Pain Right ribs 2/10 pain scale level. CO2 18
[2024-04-28 11:15] LABS: Troponin I 0.106 ng/ml
--- NOTE | 2024-04-28 11:41 | PTCARENOTE ---
SBP 78 Cardizem off. NSS 500 ML bolus adm
[2024-04-28] MEDS: STERILE WATER FOR INJECTION 10 ML IV (12:08)
[2024-04-28] MEDS: ROCEPHIN 1000 MG IV (12:09)
[2024-04-28 13:36] LABS: APTT > 200 Sec (23.4-35.0)
[2024-04-28] MEDS: DECADRON 4 MG IV ×2 (14:22→19:31)
--- NOTE | 2024-04-28 14:42 | W.PN.UPDATE ---
Update Note
Progress Note Update
Multiple discussions with interventional radiology regarding this patient.
Echocardiogram noted, hyperdynamic, normal LVEF. RV function is normal but it is dilated. Moderate pulmonary hypertension.
Heart rate has improved down to 84.
Patient is sleepy but arousable. Has been getting narcotics for pain.
Pleuritic type chest pain much better, respiratory effort improved. Clear lung exam without bronchospasm.
Given improvement on hemodynamics, heart rate and clinical situation we have opted to follow her clinically on heparin drip.
If there is any clinical deterioration then we may consider catheter directed lysis.
Dr. Su updated daughter and son earlier today.
-
Continue end-tidal CO2 monitoring
-
Continue oxygen supplementation. Nonrebreather mask has been discontinued.
-
Additional critical care time 35 minutes
--- NOTE | 2024-04-28 14:45 | W.PN.UPDATE ---
Update Note
Progress Note Update
LLE DVT -already on heparin 2/2 DVT, cont current treatment
--- NOTE | 2024-04-28 15:07 | CON.CAR ---
Addendum entered and electronically signed by Cr Álvarez MD 04/28/24 17:07:
I saw and examined the patient on morning rounds.
The Human Resources Office Assistant's note was reviewed and I agree with the note.
Comment: Briefly, 78-year-old woman presenting with hemoptysis and pleuritic type chest pain noted to have bilateral PEs and subsequently developed rapid atrial fibrillation
Patient was admitted to the medical ICU for further management where she was maintained on heparin drip for treatment of PE as well as supplemental oxygen
Evidence of right heart strain by echo with hypokinesis of the lateral right ventricular wall but right ventricle is only mildly dilated. Mildly elevated pulmonary pressures with PASP estimated at 46 mmHg.
Troponin is mildly elevated in keeping right heart strain, suspect this is nonMI troponin elevation
Heart rates have been significantly elevated in atrial fibrillation despite diltiazem drip
Suspect that elevated heart rate is somewhat compensatory, would allow for tachycardia in the short-term
Can consider direct-current cardioversion prior to discharge if A-fib persists
Continue IV heparin for cardioembolic prophylaxis
Rest per Pastora De eLon
Original Note:
Consultation
Consultation Request
Date/Time Consultation Requested: 04/28/24
Date/Time Consultation Performed: 04/28/24
Requesting Provider: Dr. Marino
Performing Provider: Dr. Álvarez
Reason for Consultation: PE, rapid Afib
Medical History
-
History of Present Illness:
Patient came to ER early this morning with complaints of hemoptysis and pain with deep inspiration and was admitted with PE, cardiology is now consulted for an episode of A-fib. Patient lives independently and sees her PCP for an annual physical
and has a h/o COPD, but does not see a reducing salon attendant. She had been coughing for a few days prior to admission and someone in her home has PNA. She noted that at times when coughing there was some blood, but then early this morning she had pain on
her right side of her chest with deep breath and cough and she thought she may have pneumonia. In ER the CT of her chest showed evidence of bilateral PEs, but no saddle PE. While in ER patient went into SVT with a heart rate up to 190 and
was hypotensive. Patient was given adenosine 6 mg IV x 1 and then 12 mg IV x1 which slowed her rapid rhythm and looked more like A-fib. She was then started on a Cardizem drip. Patient does not see a application integration architect and there is no known history of
A-fib. Patient was started on heparin drip and there was consideration for IR intervention, but it was felt there is no indication for thrombectomy as there was no saddle component to her PE. Additionally thrombolytic therapy was considered, but
patient has improved since admission and for now we will continue with heparin drip.
PMH:
COPD
Former smoker
HTN
Hyperlipidemia
Past Medical History
Past Medical History: Other (in HPI)
Past Surgical History: Gynecological (hysterectomy) and Orthopedic
Social History
Tobacco: Former Smoker
Alcohol: Occasional
Drug: None
Personal:
Living: Alone
Family History
Family History: Cancer
Allergies / Home Medications
Allergy/AdvReac Type Severity Reaction Status Date / Time
codeine Allergy Unknown Verified 04/28/24 01:34
�Medication �Instructions �Recorded �Confirmed �Type
ropinirole 1 mg tablet 5 mg PO HS Neurological Condition 07/24/11 04/28/24 History
fluoxetine 10 mg capsule 10 mg PO DAILY Mental 05/05/21 04/28/24 History
Health/Anxiety
hydrochlorothiazide 25 mg tablet 25 mg PO DAILY Blood Pressure 05/05/21 04/28/24 History
metoprolol succinate 100 mg 100 mg PO DAILY Blood Pressure 05/05/21 04/28/24 History
tablet,extended release 24 hr
ramipril 10 mg capsule 10 mg PO DAILY Blood Pressure 05/05/21 04/28/24 History
rosuvastatin 20 mg tablet 20 mg PO QPM High Cholesterol 04/28/24 04/28/24 History
Review of Systems
-
History Source: Patient
All other systems: Negative unless noted
Physical Exam
Vital Signs
Temp Pulse Resp BP Pulse Ox
96.7 F L 183 21 96/72 93
04/28/24 11:19 04/28/24 08:32 04/28/24 08:32 04/28/24 08:32 04/28/24 08:41
GEN: NAD. Ox3
HEENT: supple, anicteric, mmm
LUNGS: CTA, no wheezes/rales
CV: Reg, S1/S2, 1/6 syst LSB, no murmur
ABD: soft, BS+, NT/ND
EXT: No edema
NEURO: Gross non-focal
SKIN: No rash
Lab Results
04/28/24 03:45
04/28/24 04:24
Troponin I 0.106 ng/ml H* 04/28/24 10:34
[id number]-[id number] Pept 7360 pg/ml 04/28/24 04:24
Impression / Plan
-
PCP: Dr. Tomlin
Cardiology: None prior to admission
Impression:
Acute hypoxic respiratory failure
B/L submassive PE
LLE DVT
Chest pain
Elevated Troponin
Abnormal echo
Paroxysmal Afib with RVR
JUVENAL
COPD
Former smoker
HTN
Hyperlipidemia
Echo 04/28/2024: EF 70 to 75%, mild concentric LVH, mildly dilated RV, RV free wall is hypokinetic with preserved function at the RV apex consistent with Olson sign and suggestive of right heart strain, mod TR with PAP 46 mmHg
Plan:
-Patient came to ER early this morning with complaints of hemoptysis and pain with deep inspiration and was admitted with PE, cardiology is now consulted for an episode of A-fib. Patient lives independently and sees her PCP for an annual
physical and has a h/o COPD, but does not see a reducing salon attendant. She had been coughing for a few days prior to admission and someone in her home has PNA. She noted that at times when coughing there was some blood, but then early this morning she had
pain on her right side of her chest with deep breath and cough and she thought she may have pneumonia. In ER the CT of her chest showed evidence of bilateral PEs, but no saddle PE. While in ER patient went into SVT with a heart rate up to
190 and was hypotensive. Patient was given adenosine 6 mg IV x 1 and then 12 mg IV x1 which slowed her rapid rhythm and looked more like A-fib. She was then started on a Cardizem drip. Patient does not see a application integration architect and there is no known
history of A-fib. Patient was started on heparin drip and there was consideration for IR intervention, but it was felt there is no indication for thrombectomy as there was no saddle component to her PE. Additionally thrombolytic therapy was
considered, but patient has improved since admission and for now we will continue with heparin drip.
-ECGs reviewed by me. First ECG looks like SR, second ECG is rapid and regular and might be sinus tachycardia. Tele looks more irregular and could be Afib.
-Cardizem gtt turned off due to hypotension
-Heparin gtt for PE
-Continue to follow tele for more definitive Afib
-Outpatient dose of Toprol XL 100 mg daily on hold due to hypotension
-Outpatient dose of HCTZ 25 mg daily on hold
-Outpatient dose of ramipril 10 mg daily on hold
-Troponin flat at 0.106 and consistent with nonischemic myocardial injury Troponin elevation due to PE.
-Echo as noted with preserved EF and some RV hypokinesis and strain
-Patient was not felt to be a candidate for thrombectomy as not a saddle PE and also not a candidate for lytics due to improving hemodynamics.
--- NOTE | 2024-04-28 16:00 | PTCARENOTE ---
patient in bed. AAO x3 able to move B/L UE and LE No weakness noted
Afib changed to SR 79; pedal pulses present trace edema b/l LE
NRM 15l will on Nasal canula 6L pOX 86% . will attempt to transition to Midflow Dry non productive cough. Lungs diminished throught
abdomen soft non tender
Young placed latex free due reported by patient allergy to latex 16 F initial output 250cc clear chastity urine
denies pain
Heparin at 03/1100 cc next ptt at 2100
pt requising to change code status to DNR Dr will be notified
--- NOTE | 2024-04-28 16:45 | W.PN.UPDATE ---
Update Note
Progress Note Update
Reevaluated this afternoon, family at the bedside.
Significant clinical improvement, patient conversant.
Pain is controlled.
Complaining of coughing without significant phlegm production.
Lung exam relatively clear without bronchospasm.
Heart rate is 80. Last blood pressure 112/86.
Continue to hold antihypertensive
If blood pressure continues to be okay then restart metoprolol.
-
Suspect poor clinical situation in the emergency room was mainly related to pleuritic type chest pain as the patient only received heparin drip.
Extensive discussion with interventional radiology, Dr. Saxena, given mild RV dilatation with normal function and clinical improvement we will continue to observe.
Will hold off on catheter lysis at this point.
Continue with current management
Follow PTT close
Okay to advance diet to full liquids
Antitussives
Pain control
Oxygen supplementation-improved.
-
Again, family updated at the bedside. Patient would like to be full code.
-
No further IV fluids necessary unless patient becomes hypotensive.
-
Additional critical care time 25 minutes
[2024-04-28] MEDS: ANESTHETIC LOZENGE 1 LOZENGE PO (17:22)
[2024-04-28] MEDS: DILAUDID 0.25 MG IV (17:22)
--- NOTE | 2024-04-28 19:11 | PTCARENOTE ---
17:34 troponin 1.650 Next troponin in [address] Álvarez aware
--- NOTE | 2024-04-28 20:08 | PTCARENOTE ---
Cannot verify vitals prior to 1900, previous shift.
--- NOTE | 2024-04-28 20:26 | PTCARENOTE ---
Received patient AAOx3, following commands, reporting 2/10 pain in right ribs, tolerable for patient. Normal sinus, 80s, BP 120s/70s, normothermic. Palpable radial and pedal pulses b/l, no edema. On 15 liters midflow, saturating 98%, expiratory
wheeze noted. Abdomen soft, round, hypoactive bowel sounds. Young in place for retention, draining yellow urine. Skin intact, bruising throughout arms. PIVs and midline patent, WNL. Call medina within reach.
[2024-04-28] MEDS: TYLENOL 650 MG PO (20:57)
[2024-04-28] MEDS: REQUIP 5 MG PO (20:58)
[2024-04-28 21:12] LABS: APTT 96.5 Sec (23.4-35.0)
[2024-04-29] VITALS (29 sets, daily range): BP systolic 100–178; BP diastolic 63–102; BMI 28.7
--- NOTE | 2024-04-29 | PTCARENOTE ---
Patient assessment unchanged from previous, resting comfortably in bed. Call medina within reach.
[2024-04-29 00:29] LABS: Troponin I 0.902 ng/ml
[2024-04-29] MEDS: DECADRON 4 MG IV ×4 (03:17→23:07)
[2024-04-29 04:07] LABS: APTT > 200 Sec (23.4-35.0)
[2024-04-29] MEDS: ANESTHETIC LOZENGE 1 LOZENGE PO (05:45)
[2024-04-29] MEDS: DUONEB 3 ML INH (05:53)
[2024-04-29 06:07] LABS: Blood Urea Nitrogen 32 mg/dl (7-17); Calcium 8.9 mg/dl (8.4-10.2); Carbon Dioxide 15 mmol/L (22-30); Chloride 113 mmol/L (98-107); Estimated Creatinine Clearance 46 ml/min; Glucose 151 mg/dl (70-99); Magnesium 1.8 mg/dl (1.6-2.3); Potassium 3.6 mmol/L (3.5-5.1); Sodium 141 mmol/L (135-145); eGFR 51.75
[2024-04-29 06:23] LABS: NT-proBNP 4840 pg/ml; Troponin I 0.531 ng/ml
[2024-04-29] MEDS: KLOR-CON 20 MEQ PO (06:27)
[2024-04-29] MEDS: HEPARIN 25000 UNITS/250 ML IV (07:08)
[2024-04-29] MEDS: TYLENOL 650 MG PO ×3 (07:46→19:40)
[2024-04-29] MEDS: VIBRAMYCIN 100 MG PO ×2 (08:00→19:40)
--- NOTE | 2024-04-29 08:29 | PTCARENOTE ---
report received, assessments per work list. monitor nsr, lungs with inspiratory, expiratory wheezing. harsh nonproductive cough. right flank pain with movement, coughing and deep breathing. patient requesting tylenol for pain. flushed and tremulous.
abdomen soft, hypoactive bowel sounds. arreola draining yellow urine. reviewed plan of care, call medina in reach. heparin per work list via left midline. patient c/o reflux. d/w cold roll catcher. orders pending
[2024-04-29] MEDS: TORADOL 15 MG IV (09:14)
[2024-04-29] MEDS: STERILE WATER FOR INJECTION 10 ML IV (09:14)
[2024-04-29] MEDS: PROTONIX 40 MG PO ×2 (09:14→16:35)
[2024-04-29] MEDS: ROCEPHIN 1000 MG IV (09:14)
--- NOTE | 2024-04-29 10:01 | W.PN.CARDCBS ---
Today's Communication / Plan
-
Resume beta-constanza with improved BP
Heparin gtt for PE
Monitor on telemetry
Impression / Plan
-
PCP: Dr. Tomlin
Cardiology: None prior to admission, first seen by Dr Álvarez
Impression:
Acute hypoxic respiratory failure
B/L submassive PE
LLE DVT
Chest pain
Elevated Troponin
Abnormal echo
Paroxysmal Afib with RVR, now SR
Paroxysmal SVT
JUVENAL
COPD
Former smoker
HTN
Hyperlipidemia
Echo 04/28/2024: EF 70 to 75%, mild concentric LVH, mildly dilated RV, RV free wall is hypokinetic with preserved function at the RV apex consistent with Olson sign and suggestive of right heart strain, mod TR with PAP 46 mmHg
Plan:
-Patient came to ER early this morning with complaints of hemoptysis and pain with deep inspiration and was admitted with PE, cardiology is now consulted for an episode of A-fib. Patient lives independently and sees her PCP for an annual
physical and has a h/o COPD, but does not see a it help desk associate. She had been coughing for a few days prior to admission and someone in her home has PNA. She noted that at times when coughing there was some blood, but then early this morning she had
pain on her right side of her chest with deep breath and cough and she thought she may have pneumonia. In ER the CT of her chest showed evidence of bilateral PEs, but no saddle PE. While in ER patient went into SVT with a heart rate up to
190 and was hypotensive. Patient was given adenosine 6 mg IV x 1 and then 12 mg IV x1 which slowed her rapid rhythm and looked more like A-fib. She was then started on a Cardizem drip. Patient does not see a airline manager and there is no known
history of A-fib. Patient was started on heparin drip and there was consideration for IR intervention, but it was felt there is no indication for thrombectomy as there was no saddle component to her PE. Additionally thrombolytic therapy was
considered, but patient has improved since admission and for now we will continue with heparin drip.
-Heparin gtt for PE
-Continue to follow tele
-Outpatient dose of Toprol XL 100 mg daily on hold due to hypotension, can resume when BP improved
-Outpatient dose of HCTZ 25 mg daily on hold, re-introduce slowly
-Outpatient dose of ramipril 10 mg daily on hold, re-introduce slowly
-Troponin flat at 0.106 and consistent with nonischemic myocardial injury Troponin elevation due to PE.
-Echo as noted with preserved EF and some RV hypokinesis and strain
-Patient was not felt to be a candidate for thrombectomy as not a saddle PE and also not a candidate for lytics due to improving hemodynamics.
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
Subjective
Date of Service: April 29, 2024
Patient seen and examined. No acute events overnight. Patient resting in bed mild respiratory distress but notes no shortness of breath. Mild chest discomfort associated with PE. Denies palpitations, lightheadedness, dizziness, near-syncope,
syncope, or weakness. Telemetry demonstrates a sinus rhythm, PSVT noted overnight asymptomatic.
Objective
Labs:
04/29/24 05:37
Labs
Hgb 15.1 g/dL (12.0-16.0) 04/28/24 03:45
Hct 45.1 % (37.0-47.0) 04/28/24 03:45
Plt Count 263 10^3/uL (130-400) 04/28/24 03:45
APTT > 200 Sec (23.4-35.0) H* 04/29/24 03:21
Sodium 141 mmol/L (135-145) 04/29/24 05:37
Potassium 3.6 mmol/L (3.5-5.1) 04/29/24 05:37
BUN 32 mg/dl (7-17) H 04/29/24 05:37
Creatinine 1.1 mg/dL (0.6-1.0) H 04/29/24 05:37
Glucose 151 mg/dl (70-99) H 04/29/24 05:37
Troponins
04/28/24 04/28/24 04/28/24
03:45 04:24 10:34
Troponin I Cancelled 0.090 H* 0.106 H*
04/28/24 04/28/24 04/29/24
17:34 23:55 05:37
Troponin I 1.650 H* D 0.902 H* D 0.531 H* D
Vital Signs and I&O:
Vital Signs
Temp Pulse Resp BP Pulse Ox
97.4 F 96 20 152/94 95
04/29/24 08:18 04/29/24 09:30 04/29/24 09:30 04/29/24 09:00 04/29/24 09:30
Vital Signs
Temp Pulse Resp BP Pulse Ox
97.4 F 96 20 152/94 95
04/29/24 08:18 04/29/24 09:30 04/29/24 09:30 04/29/24 09:00 04/29/24 09:30
Intake & Output
04/27/24 04/28/24 04/29/24 04/30/24
06:59 06:59 06:59 06:59
Intake Total 2465 / 2465
Output Total 605 / 605
Balance 1860 / 1860
Physical Exam
Physical Exam
GENERAL: no acute distress
EYE: sclera anicteric
NECK: Supple, no JVD, no carotid bruit appreciated
ENT: normal nose, moist mucosal membranes
CARDIAC: Regular rate and rhythm, +S1/S2, no murmur, rubs, or gallops
CHEST/PULMONARY: Normal effort, clear breath sounds
ABDOMEN: Soft, without focal tenderness or distention
NEUROLOGICAL: Alert and oriented x3
SKIN: Warm and dry, no rash
PSYCH: Normal and appropriate interaction.
[2024-04-29] MEDS: TOPROL XL 50 MG PO ×2 (10:39→19:40)
--- NOTE | 2024-04-29 10:52 | W.PN.HOSP.TC ---
Today's Communication/Plan
-
IV heparin
Supplemental oxygen with attempt to wean off
Incentive spirometry
Analgesia.
Empiric antibiotics.
Monitor for recurrent hypotension.
Increase activity
Assessment / Plan
Assessment / Plan
78-year-old female admitted overnight with shortness of breath. She has had a cough also had some hemoptysis. Patient stated that her granddaughter was sick with pneumonia
Patient was diagnosed with bilateral PE in the ER. She then went into SVT required 2 doses of adenosine and then rhythm looked like A-fib was given diltiazem bolus as well as a drip was started. Patient complained of right-sided rib pain and was
very short of breath. IV fluids were started.
Impression:
Acute hypoxic respiratory failure secondary to submassive pulmonary embolism, right pulmonary infarct.
Submassive bilateral pulmonary embolism without saddle emboli.
Left lower extremity DVT
Right lower lobe infiltrate secondary to pulmonary infarct.
Could not exclude community-acquired pneumonia.
Atrial fibrillation with rapid ventricular response, new onset
Lactic acidosis.
Reactive leukocytosis.
Acute kidney injury
Acute urinary retention requiring Young catheter.
Conditions prior to admission:
COPD
GERD.
Essential hypertension.
Restless leg syndrome
Former smoker.
Prior history of hysterectomy.
Plan:
Acute hypoxic respiratory failure secondary to submassive pulmonary embolism, right pulmonary infarct, possibly/could not rule out pneumonia.
Respiratory status improved and stable. Currently on nasal cannula oxygen at 10 L with no evidence of distress.
Attempt to wean as tolerates.
Acute PE, submassive.
Left lower extremity DVT
Unprovoked.
Hemodynamically stable.
In review with interventional radiology it was no clear clinical indication for lytic treatment. Given the relative stability as well as no central emboli
Echocardiogram with preserved LV function LVEF 70 near 75%. Mild dilation of right ventricle. RV free wall hypokinesis with preserved function. PA pressure 46 mmHg.
Continue IV heparin
Transition to oral anticoagulation when stable respiratory status
Right lower lobe infiltrate suspect pulmonary infarct
Could not rule out infection/pneumonia.
Adjust analgesic regimen.
Incentive spirometry.
Plan is to complete 5-day course of antibiotics per
Continue systemic corticosteroids with plan to taper
Paroxysmal atrial fibrillation.
New onset.
Initiated on IV Cardizem drip and converted to sinus rhythm.
Transition to beta-constanza. Adjust dosing given marginal BP
Cardiology following
Anticoagulation as above.
Acute kidney injury
Suspect multifactorial due to prerenal stimuli with relative hypotension and acute PE as well as component of retention.
Young catheter inserted on 04/28
Hydration, currently off IV fluids encourage oral intake
Hopefully voiding trial later on 04/29 and with increase activity
GERD
Continue GI prophylaxis with PPI
Essential hypertension baseline preadmission regimen metoprolol, lisinopril, hydrochlorothiazide
Metoprolol dose adjustment for A-fib baseline holding ramipril and HCTZ given marginal BP.
Restless leg syndrome on Requip.
Dyslipidemia on statin
Anticipated Discharge: > 48 hours
Subjective/Interval History
-
Date of Service: April 29, 2024
Objective Data
-
Labs:
Laboratory Results
04/29/24 04/29/24 04/29/24
03:21 05:37 07:51
WBC Pending
Hgb Pending
Hct Pending
Plt Count Pending
APTT > 200 H*
Sodium 141
Potassium 3.6
Chloride 113 H
Carbon Dioxide 15 L
BUN 32 H
Creatinine 1.1 H
Glucose 151 H
Calcium 8.9
04/29/24
12:00
WBC
Hgb
Hct
Plt Count
APTT Pending
Sodium
Potassium
Chloride
Carbon Dioxide
BUN
Creatinine
Glucose
Calcium
Vital Signs:
Vital Signs
Temp Pulse Resp BP Pulse Ox
97.4 F 93 17 164/88 98
04/29/24 08:18 04/29/24 10:39 04/29/24 10:00 04/29/24 10:39 04/29/24 10:00
I&O
04/28/24 04/29/24 04/30/24
06:59 06:59 06:59
Intake Total 2465 / 2473 32 / 32
Output Total 605 / 605 90 / 90
Balance 0 / 186 -58 / -58
Physical Exam
-
General: Well Developed and No Apparent Distress
HEENT: Normocephalic, Atraumatic and Moist Mucous Membranes
Respiratory: Clear to Auscultation and Decreased Breath Sounds
Cardiac: Regular Rhythm and S1/S2; Negative Murmur, Rub or Gallop
GI: Soft, Nontender, Nondistended and Normal Bowel Sounds; Negative Organomegaly
Rectal: Deferred by Provider
Genito-urinary: Young
Musculoskeletal: No Clubbing, No Cyanosis and No Edema
Skin: Negative Rash
Neuro: Nonfocal/Grossly Intact
[2024-04-29] MEDS: ROXICODONE 2.5 MG PO ×3 (10:53→19:40)
[2024-04-29] MEDS: TYLENOL PO ×2 (10:55→23:07)
--- NOTE | 2024-04-29 11:33 | CM ---
CM following re: discharge planning.
Discussed in rounds, reviewed pt's chart, met with pt. Pt's son and daughter in law Julissa at bedside.
Pt is a 78 year old female, admitted with primary dx of Acute hypoxic respiratory failure secondary to submassive pulmonary embolism, right pulmonary infarct. Per Rounds meeting, pt requires 8L midflow NC of O2, continue supportive care.
Pt reports she lives alone in a 2SH, 1 step to enter, has 3 supportive children, has 2 cats. 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 No DME, VN or SNF history. Pt
expressed her very negative feelings regarding going to a SNF if she needs. Pt stated she will agree with VN services if recommended. pt's daughter in law stated that she works for [employer] [facility] and she would prefer [facility] at discharge. pt expressed
her agreement with having [facility] upon the discharge.
A referral to [facility] made.
PCP: Vamsi Tomlin
pharmacy: [facility]
D/C plan: most likely home with [facility] and family support. Family to transport at discharge.
CM will follow with discharge plan updates as hospitalization progresses
[2024-04-29] MEDS: ZOFRAN 4 MG IV ×2 (11:39→20:31)
--- NOTE | 2024-04-29 11:51 | PTCARENOTE ---
Addendum entered by Calista Ruby RN 04/29/24 12:15:
Dr Calvin updated with decrease in urine output. with activity, patient with short bursts tachycardia 150-170. self limited
Original Note:
reassessed. patient medicated with oxycodone per prn order. patient then became nauseated. medicated with zofran. wheezes persist. nonproductive cough. poor oral intake. fluids encouraged. oxygen wean per work list. family at bedside
[2024-04-29 12:02] LABS: % Basophils 0.2 % (0-2); % Immature Granulocytes 0.6 % (0-0.5); % Lymphocytes 4.9 % (20.5-51.1); % Monocytes 3.9 % (1.7-9.3); % Neutrophils 90.4 % (42.2-75.2); Absolute Basophils 0.1 10^3/uL (0-0.2); Absolute Immature Granulocytes 0.1 10^3/uL (0-0.05); Absolute Lymphocytes 1.1 10^3/uL (1.2-3.4); Absolute Monocytes 0.8 10^3/uL (0.1-0.6); Absolute Neutrophils 19.3 10^3/uL (1.4-6.5); Hematocrit 34.8 % (37.0-47.0); Hemoglobin 11.9 g/dL (12.0-16.0); Mean Corp Hgb Conc. 34.2 g/dL (33.0-37.0); Mean Corpuscular Hgb 32.1 pg (27.0-31.0); Mean Corpuscular Volume 93.8 fL (81.0-99.0); Mean Platelet Volume 9.7 fL (7.4-10.4); Nucleated Red Blood Cells % 0 %; Platelet Count 211 10^3/uL (130-400); Red Blood Cell Count 3.71 10^6/uL (4.20-5.40); Red Cell Dist. Width 13.2 % (11.5-14.5); White Blood Cell Count 21.3 10^3/uL (4.8-10.8)
[2024-04-29 12:07] LABS: APTT 56.4 Sec (23.4-35.0)
[2024-04-29] MEDS: HEPARIN 5900 UNITS IV (12:26)
[2024-04-29] MEDS: LR 500 IV (12:46)
[2024-04-29] MEDS: ATROVENT NEBULES 0.5 MG INH ×2 (13:41→18:23)
[2024-04-29] MEDS: XOPENEX 1.25 MG INHALANT SOLUTION INH ×2 (13:41→18:23)
--- NOTE | 2024-04-29 13:52 | W.PN.INTV ---
Today's Communication / Plan
Recommendations
Continue heparin drip for additional 24 to 48 hours
Pain control with narcotics-monitor respiratory status closely
Advance diet
Discontinue Young
Monitor renal function electrolytes
Continue antibiotics
Continue nebulizer therapy
Decrease steroids
ICU monitoring for today.
Assessment
-
78-year-old woman with past medical history noted, admitted through the emergency room with cough, right-sided pleuritic type chest pain, mild hypoxemia, shortness of breath for the last 2-day. Started acutely. She was on her previous normal state
of health prior to this.
Acute hypoxemic respiratory failure due to submassive pulmonary embolism-currently on nonrebreather mask
Positive troponin
Positive proBNP
Sinus tachycardia on EKG
CT chest reviewed: Reviewed, bilateral segmental pulmonary embolism. No saddle component. Evidence for RV dysfunction. Right lower lobe abnormality suggestive of possible pulmonary infarct versus pneumonia.
Severe right-sided pleuritic type chest pain due to likely pulmonary infarct
Cannot rule out pneumonia: Leukocytosis/coughing-sick contact at home.
Metabolic acidosis-mildly increased lactic acid
Leukocytosis
Acute kidney injury
Conditions present prior admission:
GERD
Hypertension
Hypercholesterolemia
Emphysema/COPD-not on inhalers
Restless leg syndrome
Previous superficial vein thrombosis in the past
Former smoker
History of hysterectomy
History of fatty liver
Denies family history of clotting.
-
Assessment and plan:
Hemodynamically stable overnight.
Once her pain control was achieved yesterday heart rate and symptoms significantly improved.
-
This morning 04/29/2024 right pleuritic type chest pain is slowly returning.
Will start oral regimen with Tylenol
Narcotics
1 dose of Toradol will be given
-
Hypoxemia likely due to splinting and pulmonary infarct/pulmonary embolus.
Analgesia
Incentive spirometry as able
Repeat chest x-ray tomorrow
-
Case has been discussed with interventional radiology: No indication for thrombectomy as there is no saddle component.
Patient has a high risk situation-increased troponin/increased proBNP..
Due to clinical improvement yesterday with pain control likely hypoxemia and tachycardia were related to exquisite pleuritic type chest pain.
Hemodynamically stable overnight
I have discussed the case multiple times with interventional radiology and at this point we will hold off on advanced interventions.
Echocardiogram noted: RV with mild dilatation. Function is okay.
-
Non-anion gap metabolic acidosis.
Suspect due to normal saline resuscitation.
Lactic acid has cleared.
Continue to follow
Will give additional bolus of LR 500 today 04/29/2024 due to decreased urinary output.
Renal function is near normal and improving
Discontinue Young
-
Unclear if right lower lobe abnormality is infectious in etiology. I suspect more of pulmonary infarct but will treat for 5 days.
Eventual repeat imaging.
Leukocytosis improving suspect reactive.
Patient is afebrile
Continue antibiotics to treat community-acquired pneumonia
Cultures negative so far
-
Continue oxygen supplementation. Suspect due to hypoventilatory changes, pulmonary infarct on top of emphysema.
Patient has history of COPD/emphysema-difficult pulmonary exam due to splinting and pain.
Mild wheezing on exam
Continue IV corticosteroids
Nebulizers Xopenex
Atrovent. Minimize beta agonist.
Antitussives
Cepacol lozenges
-
Sinus tachycardia due to pain and pulmonary embolism. Improved.
Cardiology following. Discussed, no indication for any specific therapy other than support and anticoagulation.
Troponin standing lower. Likely due to RV strain
proBNP trending lower.
-
ABG suggest some degree of respiratory acidosis but patient is mentating well, has good respiratory effort.
Not a candidate for noninvasive mechanical ventilation due to significant pleuritic type chest pain.
End-tidal CO2 monitoring suggest normal CO2 now.
Continue to follow
-
Overall clinically improved.
-
Advance diet to regular.
-
Dr. Su discussed Case d with primary team, interventional radiology, cardiology. 04/28/2024 and 04/29/2024
-
Critical care statement: A total of 31 minutes of critical care time was provided for this patient today. This includes management of unstable vital signs, evaluation of the patient at bedside, reviewing the patient's pertinent medical records
including ventilator settings, arterial blood gases, radiographs, microbiology, laboratory evaluations and discussion with primary team, critical care nursing, and respiratory therapy.
Subjective Dataa
Subjective Data
Date of Service:
Date of Service: April 29, 2024
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
Subjective:
this morning right pleuritic type chest pain slowly returning.
Overnight remained stable hemodynamically
Denies significant phlegm production continues to have intermittent coughing.
Review of Systems
General: Fever (n)
Cardiopulmonary: Dyspnea (due to pain on chest)
GI: Abdominal Pain (n) and Nausea (n)
Neuro: Headache (n)
Objective Data
Data Reviewed
Vital Signs / I&O / Oxygen:
Vital Signs
Temp Pulse Resp BP Pulse Ox
98.0 F 94 18 166/102 96
04/29/24 12:15 04/29/24 11:00 04/29/24 11:00 04/29/24 11:00 04/29/24 11:00
Intake and Output
04/28/24 04/29/24 04/30/24
06:59 06:59 06:59
Intake Total 2465 / 2473 556 / 556
Output Total 605 / 605 130 / 130
Balance 1860 / 1868 426 / 426
SaO2 96
Nasal Cannula flow liters per 15
minute
Physical Exam
General: Respiratory Distress (minimal due to pain)
HEENT: Normocephalic
Cardiovascular: S1-S2
Respiratory: Wheeze (Minimal expiratory)
GI: Soft and Non Distended
Neurology: Awake, Alert and No Motor Deficits
Skin: Warm
Labs/Micro/Reports
Lab Data
04/29/24 11:38
04/29/24 05:37
Laboratory Results
04/28/24 04/29/24 04/29/24
20:55 03:21 11:38
APTT 96.5 H > 200 H* 56.4 H
Microbiology
04/28/24 10:52 Blood/Venous Blood Culture - Preliminary
No Growth in 24 hours- Final report to follow
04/28/24 10:34 Blood/Venous Blood Culture - Preliminary
No Growth in 24 hours- Final report to follow
04/28/24 04:24 Nasal Swab Influenza Types A & B (SHANIA) - Final
Negative for Influenza A & B, NAAT
Negative results must be combined with clinical observations
and patient history.
Nucleic Acid Amplification test (NAAT)performed on the
[employer] platform.
04/28/24 04:24 Nasal Swab Respiratory Syncytial Virus Culture - Final
Negative for Respiratory Syncytial Virus.
A false negative result may be obtained with a specimen
collected early in the acute phase. If symptoms persist, a
new specimen should be tested.
--- NOTE | 2024-04-29 14:42 | PTCARENOTE ---
mobile development manager updated with urine output trends post fluid bolus. arreola removed per mobile development manager. purewick applied. with activity, heart rate bursts to the 160's, pulse oximeter 83 with activity. after period of rest, sats improved. tachycardia self
limited
[2024-04-29] MEDS: ROBITUSSIN DM 5 ML PO (15:20)
--- NOTE | 2024-04-29 15:48 | PTCARENOTE ---
reassessed. frequent coughing spells with associated self limited tachycardia and hypoxia. medicated with robitussin DM. repositioned. fluid intake encouraged. reassessed. wheezes persist. call medina in reach. family at bedside
[2024-04-29 19:11] LABS: APTT > 200 Sec (23.4-35.0)
--- NOTE | 2024-04-29 20:40 | PTCARENOTE ---
Received patient AAOx3, following commands, ESTER. Complaining of pain with movement, oxycodone given. Now nauseous, zofran given. Bladder scanned for 155 mls. Normal sinus 80s, occasionally sinus tach to 150s-160s on exertion. BP stable,
normothermic, +1 LE edema. Palpable radial and pedal pulses b/l. On 5 liters nasal cannula, lung sounds diminished, expiratory wheeze. Abdomen soft, round, nontender, hypoactive bowel sounds, no BM yet. Next bladder scan 2300. PIVs patent, WNL.
Heparin paused per protocol. Call medina within reach.
[2024-04-29] MEDS: REQUIP 5 MG PO (21:32)
[2024-04-29] MEDS: TUMS CHEWABLE TABLET 400 MG PO (21:35)
[2024-04-29] MEDS: LOPRESSOR 5 MG IV (23:24)
[2024-04-29] MEDS: COMPAZINE 10 MG IV (23:25)
[2024-04-29] MEDS: OCEAN, SALINE MIST 2 SPRAYS NASAL (23:31)
--- NOTE | 2024-04-29 23:40 | PTCARENOTE ---
BP consistently 160s-170s/80s-90s, patient denies pain. RAND TACKER notified, lopressor given. Patient reports ongoing nausea despite zofran, compazine given. Otherwise patient assessment unchanged from previous, call medina within reach.
[2024-04-30] VITALS (19 sets, daily range): BP systolic 111–179; BP diastolic 68–142; PULSE 80–82; O2SAT 99; BMI 29.0
[2024-04-30] MEDS: TYLENOL 650 MG PO ×4 (03:39→20:28)
[2024-04-30] MEDS: TYLENOL PO ×3 (03:40→23:05)
--- NOTE | 2024-04-30 04:06 | PTCARENOTE ---
Labs sent, CHG bath done, voided 375 ml on bedpan. Otherwise patient assessment unchanged from previous, call medina within reach.
[2024-04-30 04:18] LABS: Hematocrit 34.7 % (37.0-47.0); Hemoglobin 11.4 g/dL (12.0-16.0); Mean Corp Hgb Conc. 32.9 g/dL (33.0-37.0); Mean Corpuscular Hgb 32.3 pg (27.0-31.0); Mean Corpuscular Volume 98.3 fL (81.0-99.0); Mean Platelet Volume 9.9 fL (7.4-10.4); Platelet Count 210 10^3/uL (130-400); Red Blood Cell Count 3.53 10^6/uL (4.20-5.40); Red Cell Dist. Width 13.3 % (11.5-14.5); White Blood Cell Count 19.5 10^3/uL (4.8-10.8)
[2024-04-30 04:27] LABS: INR 1.23; PT 15.8 Sec (11.4-14.6)
[2024-04-30 04:28] LABS: APTT 77.8 Sec (23.4-35.0)
[2024-04-30 04:29] LABS: APTT 71.8 Sec (23.4-35.0)
[2024-04-30 05:11] LABS: Blood Urea Nitrogen 38 mg/dl (7-17); Calcium 9.4 mg/dl (8.4-10.2); Carbon Dioxide 17 mmol/L (22-30); Chloride 112 mmol/L (98-107); Estimated Creatinine Clearance 51 ml/min; Glucose 138 mg/dl (70-99); Magnesium 1.9 mg/dl (1.6-2.3); Potassium 4.1 mmol/L (3.5-5.1); Sodium 140 mmol/L (135-145); eGFR 58.02
[2024-04-30] MEDS: ATROVENT NEBULES 0.5 MG INH ×3 (07:25→20:51)
[2024-04-30] MEDS: XOPENEX 1.25 MG INHALANT SOLUTION INH ×3 (07:25→20:51)
[2024-04-30] MEDS: PROTONIX 40 MG PO ×2 (08:12→20:28)
[2024-04-30] MEDS: VIBRAMYCIN 100 MG PO ×2 (08:12→20:29)
[2024-04-30] MEDS: PROZAC 10 MG PO (08:12)
[2024-04-30] MEDS: DECADRON 4 MG IV ×2 (08:13→20:28)
[2024-04-30] MEDS: TOPROL XL 100 MG PO (08:16)
[2024-04-30] MEDS: STERILE WATER FOR INJECTION 10 ML IV (09:14)
[2024-04-30] MEDS: ROCEPHIN 1000 MG IV (09:14)
--- NOTE | 2024-04-30 09:44 | W.PN.CARDCBS ---
Today's Communication / Plan
-
IV heparin with eventual transition to oral anticoagulation
Pain control per primary service
Tolerating beta-constanza therapy, reintroduce remaining medical therapy as nearing discharge
Impression / Plan
-
PCP: Dr. Tomlin
Cardiology: None prior to admission, first seen by Dr Álvarez
Impression:
Acute hypoxic respiratory failure
B/L submassive PE
LLE DVT
Chest pain
Elevated Troponin
Abnormal echo
Paroxysmal Afib with RVR, now SR
Paroxysmal SVT
JUVENAL
COPD
Former smoker
HTN
Hyperlipidemia
Echo 04/28/2024: EF 70 to 75%, mild concentric LVH, mildly dilated RV, RV free wall is hypokinetic with preserved function at the RV apex consistent with Olson sign and suggestive of right heart strain, mod TR with PAP 46 mmHg
Plan:
-Patient came to ER early this morning with complaints of hemoptysis and pain with deep inspiration and was admitted with PE, cardiology is now consulted for an episode of A-fib. Patient lives independently and sees her PCP for an annual
physical and has a h/o COPD, but does not see a mill tender. She had been coughing for a few days prior to admission and someone in her home has PNA. She noted that at times when coughing there was some blood, but then early this morning she had
pain on her right side of her chest with deep breath and cough and she thought she may have pneumonia. In ER the CT of her chest showed evidence of bilateral PEs, but no saddle PE. While in ER patient went into SVT with a heart rate up to
190 and was hypotensive. Patient was given adenosine 6 mg IV x 1 and then 12 mg IV x1 which slowed her rapid rhythm and looked more like A-fib. She was then started on a Cardizem drip. 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
history of A-fib. Patient was started on heparin drip and there was consideration for IR intervention, but it was felt there is no indication for thrombectomy as there was no saddle component to her PE. Additionally thrombolytic therapy was
considered, but patient has improved since admission and for now we will continue with heparin drip.
-Heparin gtt for PE
-Continue to follow tele
-Outpatient dose of Toprol XL 100 mg daily, resumed, patient tolerating well
-Outpatient dose of HCTZ 25 mg daily on hold, re-introduce slowly possibly on discharge
-Outpatient dose of ramipril 10 mg daily on hold, re-introduce slowly possibly on discharge
-Troponin flat at 0.106 and consistent with nonischemic myocardial injury Troponin elevation due to PE.
-Echo as noted with preserved EF and some RV hypokinesis and strain
-Patient was not felt to be a candidate for thrombectomy as not a saddle PE and also not a candidate for lytics due to improving hemodynamics.
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
Subjective
Date of Service: April 30, 2024
Patient seen and examined this morning. No acute events overnight. Patient reporting overall improvement in right-sided discomfort with inspiration due to PE. Notes improvement in cough. Notes mild improvement in her breathing. No other
complaints at this time. Telemetry demonstrates sinus rhythm.
Objective
Labs:
04/30/24 03:45
04/30/24 03:45
Labs
Hgb 11.4 g/dL (12.0-16.0) L 04/30/24 03:45
Hct 34.7 % (37.0-47.0) L 04/30/24 03:45
Plt Count 210 10^3/uL (130-400) 04/30/24 03:45
PT 15.8 Sec (11.4-14.6) H 04/30/24 03:45
INR 1.23 04/30/24 03:45
APTT 71.8 Sec (23.4-35.0) H 04/30/24 03:45
APTT 77.8 Sec (23.4-35.0) H 04/30/24 03:45
Sodium 140 mmol/L (135-145) 04/30/24 03:45
Potassium 4.1 mmol/L (3.5-5.1) 04/30/24 03:45
BUN 38 mg/dl (7-17) H 04/30/24 03:45
Creatinine 1.0 mg/dL (0.6-1.0) 04/30/24 03:45
Glucose 138 mg/dl (70-99) H 04/30/24 03:45
Troponins
04/28/24 04/28/24 04/28/24
03:45 04:24 10:34
Troponin I Cancelled 0.090 H* 0.106 H*
04/28/24 04/28/24 04/29/24
17:34 23:55 05:37
Troponin I 1.650 H* D 0.902 H* D 0.531 H* D
Vital Signs and I&O:
Vital Signs
Temp Pulse Resp BP Pulse Ox
98 F 84 18 111/78 94
04/30/24 07:53 04/30/24 07:27 04/30/24 07:27 04/30/24 06:00 04/30/24 07:27
Vital Signs
Temp Pulse Resp BP Pulse Ox
98 F 84 18 111/78 94
04/30/24 07:53 04/30/24 07:27 04/30/24 07:27 04/30/24 06:00 04/30/24 07:27
Intake & Output
04/28/24 04/29/24 04/30/24 05/01/24
06:59 06:59 06:59 06:59
Intake Total 2465 / 2473 1169 / 1177
Output Total 605 / 605 520 / 520 200 / 200
Balance 1860 / 1868 649 / 657 -176 / -176
Physical Exam
Physical Exam
GENERAL: no acute distress
EYE: sclera anicteric
NECK: Supple, no JVD, no carotid bruit appreciated
ENT: normal nose, moist mucosal membranes
CARDIAC: Regular rate and rhythm, +S1/S2, no murmur, rubs, or gallops
CHEST/PULMONARY: Normal effort, clear breath sounds
ABDOMEN: Soft, without focal tenderness or distention
NEUROLOGICAL: Alert and oriented x3
SKIN: Warm and dry, no rash
PSYCH: Normal and appropriate interaction.
--- NOTE | 2024-04-30 10:27 | W.PN.HOSP.TC ---
Today's Communication/Plan
-
Wean off O2
Pain control
Incentive spirometry.
IV heparin for another 24 hours with plan to transition to oral anticoagulation tomorrow.
Rate and rhythm monitoring while on metoprolol.
PT assessment
Assessment / Plan
Assessment / Plan
78-year-old female admitted overnight with shortness of breath. She has had a cough also had some hemoptysis. Patient stated that her granddaughter was sick with pneumonia
Patient was diagnosed with bilateral PE in the ER. She then went into SVT required 2 doses of adenosine and then rhythm looked like A-fib was given diltiazem bolus as well as a drip was started. Patient complained of right-sided rib pain and was
very short of breath. IV fluids were started.
Impression:
Acute hypoxic respiratory failure secondary to submassive pulmonary embolism, right pulmonary infarct.
Submassive bilateral pulmonary embolism without saddle emboli.
Left lower extremity DVT
Right lower lobe infiltrate secondary to pulmonary infarct.
Could not exclude community-acquired pneumonia.
Atrial fibrillation with rapid ventricular response, new onset
Lactic acidosis.
Reactive leukocytosis.
Acute kidney injury
Acute urinary retention requiring Young catheter.
Conditions prior to admission:
COPD
GERD.
Essential hypertension.
Restless leg syndrome
Former smoker.
Prior history of hysterectomy.
Plan:
Acute hypoxic respiratory failure secondary to submassive pulmonary embolism, right pulmonary infarct, possibly/could not rule out pneumonia.
Respiratory status improved and stable.
Oxygen requirements improved with pain control and down to 5 L nasal cannula.
Acute PE, submassive.
Left lower extremity DVT
Unprovoked.
Hemodynamically stable.
In review with interventional radiology it was no clear clinical indication for lytic treatment. Given the relative stability as well as no central emboli
Echocardiogram with preserved LV function LVEF 70 near 75%. Mild dilation of right ventricle. RV free wall hypokinesis with preserved function. PA pressure 46 mmHg.
Continue IV heparin for another 24 hours with plan to transition to Eliquis once stable respiratory status.
Right lower lobe infiltrate suspect pulmonary infarct
Could not rule out infection/pneumonia.
Adjust analgesic regimen.
Incentive spirometry.
Plan is to complete 5-day course of antibiotics per
Continue systemic corticosteroids with plan to taper
Paroxysmal atrial fibrillation.
New onset.
Initiated on IV Cardizem drip and converted to sinus rhythm.
Continue metoprolol for rate control
Cardiology following
Anticoagulation as above.
Acute kidney injury
Suspect multifactorial due to prerenal stimuli with relative hypotension and acute PE as well as component of retention.
Young catheter inserted on 04/28
Hydration, currently off IV fluids encourage oral intake
Hopefully voiding trial later on 04/29 and with increase activity
GERD
Continue GI prophylaxis with PPI
Essential hypertension baseline preadmission regimen metoprolol, lisinopril, hydrochlorothiazide
Metoprolol dose adjustment for A-fib baseline holding ramipril and HCTZ given marginal BP.
Restless leg syndrome on Requip.
Dyslipidemia on statin
Anticipated Discharge: > 48 hours
Subjective/Interval History
-
Date of Service: April 30, 2024
Objective Data
-
Labs:
Laboratory Results
04/30/24 04/30/24 04/30/24
03:45 03:45 11:00
WBC 19.5 H
Hgb 11.4 L
Hct 34.7 L
Plt Count 210
PT 15.8 H
INR 1.23
APTT 71.8 H 77.8 H Pending
Sodium 140
Potassium 4.1
Chloride 112 H
Carbon Dioxide 17 L
BUN 38 H
Creatinine 1.0
Glucose 138 H
Calcium 9.4
Vital Signs:
Vital Signs
Temp Pulse Resp BP Pulse Ox
98 F 76 18 134/68 97
04/30/24 07:53 04/30/24 10:00 04/30/24 10:00 04/30/24 10:00 04/30/24 10:00
I&O
04/29/24 04/30/24 05/01/24
06:59 06:59 06:59
Intake Total 2465 / 2473 1169 / 1177
Output Total 605 / 605 520 / 520 200 / 200
Balance 1860 / 1868 649 / 657 -176 / -176
Physical Exam
-
General: Well Developed and No Apparent Distress
HEENT: Normocephalic, Atraumatic and Moist Mucous Membranes
Respiratory: Clear to Auscultation and Decreased Breath Sounds
Cardiac: Regular Rhythm and S1/S2; Negative Murmur, Rub or Gallop
GI: Soft, Nontender, Nondistended and Normal Bowel Sounds; Negative Organomegaly
Rectal: Deferred by Provider
Genito-urinary: Young
Musculoskeletal: No Clubbing, No Cyanosis and No Edema
Skin: Negative Rash
Neuro: Nonfocal/Grossly Intact
--- NOTE | 2024-04-30 10:46 | W.PN.INTV ---
Today's Communication / Plan
Recommendations
Continue heparin drip for today
Hopefully transition to oral anticoagulants tomorrow
Continue to wean down oxygen
Tramadol for pain control
Discontinue narcotics patient developed nausea
Continue Tylenol
Complete antibiotic therapy for 5 days
Physical therapy/Occupational Therapy
Transfer to telemetry
Sign off
Assessment
-
78-year-old woman with past medical history noted, admitted through the emergency room with cough, right-sided pleuritic type chest pain, mild hypoxemia, shortness of breath for the last 2-day. Started acutely. She was on her previous normal state
of health prior to this.
Acute hypoxemic respiratory failure due to submassive pulmonary embolism-currently on nonrebreather mask
Positive troponin
Positive proBNP
Sinus tachycardia on EKG
CT chest reviewed: Reviewed, bilateral segmental pulmonary embolism. No saddle component. Evidence for RV dysfunction. Right lower lobe abnormality suggestive of possible pulmonary infarct versus pneumonia.
Severe right-sided pleuritic type chest pain due to likely pulmonary infarct
Cannot rule out pneumonia: Leukocytosis/coughing-sick contact at home.
Metabolic acidosis-mildly increased lactic acid
Leukocytosis
Acute kidney injury
Conditions present prior admission:
GERD
Hypertension
Hypercholesterolemia
Emphysema/COPD-not on inhalers
Restless leg syndrome
Previous superficial vein thrombosis in the past
Former smoker
History of hysterectomy
History of fatty liver
Denies family history of clotting.
-
Assessment and plan:
Remains hemodynamically stable
Heart rate improved
Pleuritic type chest pain improved
Continue heparin drip for today
Transition to oral anticoagulants tomorrow if stable, suspect patient will need lifelong anticoagulation as this pulmonary embolism was unprovoked.
-
Unfortunately, developed nausea and vomiting with narcotics. Will discontinue.
Today she states that the pain has significantly improved
Continue Tylenol
discontinue narcotics due to nausea and vomiting
Start tramadol as needed
If remains with significant pain tomorrow 05/01/2024 will give extra dose of Toradol. Hold for now due to risk of bleeding.
-
Hypoxemia likely due to splinting and pulmonary infarct/pulmonary embolus.
Currently at 5 L. Improved.
Incentive respiratory
Increase mobility: Physical therapy/Occupational Therapy consulted.
-
Case has been discussed with interventional radiology: No indication for thrombectomy as there is no saddle component.
Echocardiogram noted: RV with mild dilatation. Function is okay.
Patient has a high risk situation-increased troponin/increased proBNP..
Due to clinical improvement yesterday with pain control likely hypoxemia and tachycardia were related to exquisite pleuritic type chest pain.
Remains hemodynamically stable.
Overall clinically improved
-
Non-anion gap metabolic acidosis.
Encourage oral intake
Follow-up
Young discontinue
Renal function normalized
-
Unclear if right lower lobe abnormality is infectious in etiology. I suspect more of pulmonary infarct but will treat for 5 days.
Will need radiographic follow-up in the outpatient setting
Leukocytosis improving suspect reactive.
Patient is afebrile
Continue antibiotics to treat community-acquired pneumonia-complete 5-day
Cultures negative so far
-
Continue oxygen supplementation. Suspect due to hypoventilatory changes, pulmonary infarct on top of emphysema.
Patient has history of COPD/emphysema-difficult pulmonary exam due to splinting and pain.
Not bronchospastic on exam 04/30/2024.
Continue IV corticosteroids-decrease dexamethasone to every 12. Transition to prednisone 40 mg tomorrow and decrease by 10 mg every 48 hours to off.
Continue nebulizer therapy for now while in the hospital.
She usually does not take any inhalers in the outpatient setting.
Antitussives
Cepacol lozenges
-
Sinus tachycardia due to pain and pulmonary embolism. Improved.
Cardiology following. Discussed, no indication for any specific therapy other than support and anticoagulation.
Troponin standing lower. Likely due to RV strain
proBNP trending lower.
-
Overall clinically improved.
-
Advance diet to regular.
-
Family has been updated by Dr. Su on a daily basis at the bedside last time 04/30/2024.
-
Transfer to telemetry
Pulmonary will follow
Subjective Dataa
Subjective Data
Date of Service:
Date of Service: April 30, 2024
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
Subjective:
Feels better today.
Continues to have intermittent chest pain
Remains on supplemental oxygen
Denies phlegm production
Patient developed nausea with narcotics.
Review of Systems
General: Fever (n)
Cardiopulmonary: Dyspnea (improved) and Cough (improved)
GI: Abdominal Pain (n) and Nausea (n)
Neuro: Headache (n)
Objective Data
Data Reviewed
Vital Signs / I&O / Oxygen:
Vital Signs
Temp Pulse Resp BP Pulse Ox
98 F 76 18 134/68 97
04/30/24 07:53 04/30/24 10:00 04/30/24 10:00 04/30/24 10:00 04/30/24 10:00
Intake and Output
04/29/24 04/30/24 05/01/24
06:59 06:59 06:59
Intake Total 2465 / 2473 1169 / 1177
Output Total 605 / 605 520 / 520 200 / 200
Balance 1860 / 1868 649 / 657 -176 / -176
SaO2 97
Nasal Cannula flow liters per 5
minute
Physical Exam
General: Respiratory Distress (minimal due to pain)
HEENT: Normocephalic
Cardiovascular: S1-S2
Respiratory: Wheeze (Minimal expiratory)
GI: Soft and Non Distended
Neurology: Awake, Alert and No Motor Deficits
Skin: Warm
Labs/Micro/Reports
Lab Data
04/30/24 03:45
04/30/24 03:45
Laboratory Results
04/29/24 04/29/24 04/30/24
11:38 18:32 03:45
PT 15.8 H
INR 1.23
APTT 56.4 H > 200 H* 71.8 H
04/30/24
03:45
PT
INR
APTT 77.8 H
Microbiology
04/28/24 10:34 Blood/Venous Blood Culture - Preliminary
No Growth in 48 hours- Final report to follow
04/28/24 10:52 Blood/Venous Blood Culture - Preliminary
No Growth in 24 hours- Final report to follow
04/28/24 04:24 Nasal Swab Influenza Types A & B ([facility]) - Final
Negative for Influenza A & B, NAAT
Negative results must be combined with clinical observations
and patient history.
Nucleic Acid Amplification test (NAAT)performed on the
[employer] platform.
04/28/24 04:24 Nasal Swab Respiratory Syncytial Virus Culture - Final
Negative for Respiratory Syncytial Virus.
A false negative result may be obtained with a specimen
collected early in the acute phase. If symptoms persist, a
new specimen should be tested.
[2024-04-30 11:11] LABS: APTT 54.8 Sec (23.4-35.0)
[2024-04-30] MEDS: HEPARIN 5900 UNITS IV (11:25)
[2024-04-30] MEDS: ULTRAM 50 MG PO ×2 (11:28→20:29)
[2024-04-30] MEDS: TUMS CHEWABLE TABLET 400 MG PO ×2 (11:33→20:29)
--- NOTE | 2024-04-30 11:38 | PTCARENOTE ---
Per protocol Heparin bolus given and gtts increased to 1100units/hr. Ultram given for pain. Assessment unchanged.
[2024-04-30] MEDS: HEPARIN 25000 UNITS/250 ML IV (13:03)
--- NOTE | 2024-04-30 15:21 | PTCARENOTE ---
Pt OOB to recliner chair with PT/OT, sat up for ~1.5hrs. Assisted to bathroom with rolling walker, voiding yellow urine. Pt then assisted back to bed. New peripheral IV placed in right wrist.
[2024-04-30 19:31] LABS: APTT 196.8 Sec (23.4-35.0)
--- NOTE | 2024-04-30 19:36 | PTCARENOTE ---
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
[2024-04-30] MEDS: APRESOLINE 10 MG IV (20:29)
[2024-04-30] MEDS: REQUIP 5 MG PO (20:29)
[2024-05-01 02:27] LABS: APTT 107.1 Sec (23.4-35.0)
[2024-05-01 03:25] VITALS: BP 157/91
[2024-05-01] MEDS: TYLENOL PO (04:32)
[2024-05-01 07:40] VITALS: BP 184/93
[2024-05-01] MEDS: ATROVENT NEBULES 0.5 MG INH ×3 (07:52→19:14)
[2024-05-01] MEDS: XOPENEX 1.25 MG INHALANT SOLUTION INH ×3 (07:53→19:14)
[2024-05-01 08:07] LABS: APTT 79.3 Sec (23.4-35.0)
[2024-05-01] MEDS: ULTRAM 50 MG PO (08:43)
[2024-05-01] MEDS: PROZAC 10 MG PO (08:43)
[2024-05-01] MEDS: VIBRAMYCIN 100 MG PO ×2 (08:43→20:20)
[2024-05-01] MEDS: TYLENOL 650 MG PO ×4 (08:43→20:20)
[2024-05-01] MEDS: PROTONIX 40 MG PO ×2 (08:44→20:20)
[2024-05-01] MEDS: TOPROL XL 100 MG PO (08:49)
[2024-05-01] MEDS: DECADRON 4 MG IV (08:49)
[2024-05-01] MEDS: TUMS CHEWABLE TABLET 400 MG PO ×2 (09:04→22:40)
[2024-05-01] MEDS: ZOFRAN 4 MG IV (09:04)
[2024-05-01] MEDS: CARDIZEM 10 MG IV (09:20)
--- NOTE | 2024-05-01 09:26 | PTCARENOTE ---
pt with HR 170s-180's on the monitor. checked on pt, pt c/o left hip pain & headache, associated with nausea. pt also states her heart is racing. BP 130's/90's. EKG done. pt AFib w/ RVR HR 160's. made aware. IV Cardizem given as per ordered. PRN
ultram and Zofran given. Pt HR on 120's-130's now. plan of care ongoing.
[2024-05-01 10:09] LABS: % Basophils 0.1 % (0-2); % Immature Granulocytes 0.7 % (0-0.5); % Lymphocytes 5.7 % (20.5-51.1); % Neutrophils 87.5 % (42.2-75.2); Absolute Immature Granulocytes 0.1 10^3/uL (0-0.05); Absolute Lymphocytes 0.8 10^3/uL (1.2-3.4); Absolute Monocytes 0.8 10^3/uL (0.1-0.6); Hematocrit 34.5 % (37.0-47.0); Hemoglobin 11.7 g/dL (12.0-16.0); Mean Corp Hgb Conc. 33.9 g/dL (33.0-37.0); Mean Corpuscular Volume 94.3 fL (81.0-99.0); Mean Platelet Volume 9.7 fL (7.4-10.4); Nucleated Red Blood Cells % 0 %; Platelet Count 220 10^3/uL (130-400); Red Blood Cell Count 3.66 10^6/uL (4.20-5.40); Red Cell Dist. Width 13.3 % (11.5-14.5); White Blood Cell Count 13.7 10^3/uL (4.8-10.8)
[2024-05-01] MEDS: ROCEPHIN 1000 MG IV (10:10)
[2024-05-01] MEDS: STERILE WATER FOR INJECTION 10 ML IV (10:10)
[2024-05-01 10:25] LABS: Blood Urea Nitrogen 32 mg/dl (7-17); Calcium 9.5 mg/dl (8.4-10.2); Carbon Dioxide 21 mmol/L (22-30); Chloride 107 mmol/L (98-107); Estimated Creatinine Clearance 63 ml/min; Glucose 143 mg/dl (70-99); Potassium 4.3 mmol/L (3.5-5.1); Sodium 137 mmol/L (135-145); eGFR > 60.00
[2024-05-01 11:41] VITALS: BP 141/79
--- NOTE | 2024-05-01 13:24 | W.PN.PUL3 ---
Today's Communication / Plan
-
Continue nebulizers while in the hospital
Transition to prednisone
Will transition to oral anticoagulants-Will need indefinitely therapy
Continue analgesia for pleuritic type chest pain due to pulmonary infarct
Complete antibiotics tomorrow
Home oxygen assessment tomorrow
Assessment
-
78-year-old woman with past medical history noted, admitted through the emergency room with cough, right-sided pleuritic type chest pain, mild hypoxemia, shortness of breath for the last 2-day. Started acutely. She was on her previous normal state
of health prior to this.
Acute hypoxemic respiratory failure due to submassive pulmonary embolism-currently on nonrebreather mask
Positive troponin
Positive proBNP
Sinus tachycardia on EKG
CT chest reviewed: Reviewed, bilateral segmental pulmonary embolism. No saddle component. Evidence for RV dysfunction. Right lower lobe abnormality suggestive of possible pulmonary infarct versus pneumonia.
Severe right-sided pleuritic type chest pain due to likely pulmonary infarct
Cannot rule out pneumonia: Leukocytosis/coughing-sick contact at home.
Metabolic acidosis-mildly increased lactic acid
Leukocytosis
Acute kidney injury
Conditions present prior admission:
GERD
Hypertension
Hypercholesterolemia
Emphysema/COPD-not on inhalers
Restless leg syndrome
Previous superficial vein thrombosis in the past
Former smoker
History of hysterectomy
History of fatty liver
Denies family history of clotting.
-
Assessment and plan:
Hemodynamically stable overnight
Not significantly tachycardic
On heparin drip for longer than 48 hours.
Okay to transition to oral anticoagulations, may need to continue indefinitely.
-
Continue with analgesia
Did not tolerate narcotics due to nausea and vomiting.
Today she states that the pain has significantly improved
Continue Tylenol
Tramadol
Defer further pain management to primary team
Patient did receive 2 doses of Toradol in the outpatient setting. Continue to monitor for bleeding.
-
Hypoxemia likely due to splinting and pulmonary infarct/pulmonary embolus.
Currently 4 L
Home oxygen assessment tomorrow 05/02/2024
Incentive spirometry encouraged
-
Increase mobility: Physical therapy/Occupational Therapy consulted.
-
Case has been discussed with interventional radiology: No indication for thrombectomy as there is no saddle component.
Echocardiogram noted: RV with mild dilatation. Function is okay.
Patient has a high risk situation-increased troponin/increased proBNP..
Due to clinical improvement yesterday with pain control likely hypoxemia and tachycardia were related to exquisite pleuritic type chest pain.
Clinically improved
-
Non-anion gap metabolic acidosis. Improved
Renal function normalized
-
Unclear if right lower lobe abnormality is infectious in etiology. I suspect more of pulmonary infarct but will treat for 5 days.
Will need radiographic follow-up in the outpatient setting
Leukocytosis improving suspect reactive.
Patient is afebrile
Continue antibiotics to treat community-acquired pneumonia-complete 5-day
Cultures negative so far
-
Continue oxygen supplementation. Suspect due to hypoventilatory changes, pulmonary infarct on top of emphysema.
Patient has history of COPD/emphysema-difficult pulmonary exam due to splinting and pain.
Not bronchospastic on exam 04/30/2024.
Transition to prednisone 05/01/2024-40 mg and decrease by 10 mg every 48 hours to off.
Continue nebulizer therapy for now while in the hospital.
She usually does not take any inhalers in the outpatient setting.
Antitussives
Cepacol lozenges
-
Sinus tachycardia due to pain and pulmonary embolism. Improved.
Cardiology following. Discussed, no indication for any specific therapy other than support and anticoagulation.
Troponin standing lower. Likely due to RV strain.
-
Regular diet
-
Family has been updated by Dr. Su on a daily basis at the bedside last time 04/30/2024.
-
Continue telemetry monitoring
Pulmonary will continue to follow
Outpatient pulmonary follow-up after discharge
Subjective Data
-
Date of Service:
Date of Service: May 01, 2024
Objective Data
Data Reviewed
Vital Signs / I&O / Oxygen:
Vital Signs
Temp Pulse Resp BP Pulse Ox
97.5 F 77 20 141/79 96
05/01/24 11:41 05/01/24 11:41 05/01/24 11:41 05/01/24 11:41 05/01/24 12:12
Intake and Output
04/30/24 05/01/24 05/02/24
06:59 06:59 06:59
Intake Total 1169 / 1177 128 / 128
Output Total 520 / 520 200 / 200
Balance 649 / 657 -72 / -72
SaO2 96
Nasal Cannula flow liters per 4
minute
Labs/Micro/Reports
Lab Data
05/01/24 09:59
05/01/24 10:00
Laboratory Results
04/30/24 05/01/24 05/01/24
18:40 02:04 07:48
APTT 196.8 H* 107.1 H 79.3 H
Microbiology
04/28/24 10:52 Blood/Venous Blood Culture - Preliminary
No Growth in 72 hours- Final report to follow
04/28/24 10:34 Blood/Venous Blood Culture - Preliminary
No Growth in 72 hours- Final report to follow
--- NOTE | 2024-05-01 13:41 | W.PN.UPDATE ---
Update Note
Progress Note Update
She complains of left hip pain.
On exam there is no hematoma
There is no abdominal tenderness
There is no flank tenderness
Suspect musculoskeletal
Her hemoglobin decreased to 11.7 since admission but it could be related to her procedure
Will continue to follow hemoglobin
There is a drop of hemoglobin further than this and abdominal pain is worse CT abdomen pelvis will be necessary.
--- NOTE | 2024-05-01 13:51 | W.PN.HOSP.TC ---
Today's Communication/Plan
-
CT scan of the abdomen pelvis rule out retroperitoneal hematoma
Monitor hemoglobin
Continue IV heparin with caution.
Continue antibiotics
Oral steroid taper
Attempt to wean off oxygen, currently on 4 L.
Incentive spirometry.
Monitor rate and rhythm. Did require single dose of IV Cardizem today to treat A-fib with RVR. Continue metoprolol.
Assessment / Plan
Assessment / Plan
78-year-old female admitted overnight with shortness of breath. She has had a cough also had some hemoptysis. Patient stated that her granddaughter was sick with pneumonia
Patient was diagnosed with bilateral PE in the ER. She then went into SVT required 2 doses of adenosine and then rhythm looked like A-fib was given diltiazem bolus as well as a drip was started. Patient complained of right-sided rib pain and was
very short of breath. IV fluids were started.
Impression:
Acute hypoxic respiratory failure secondary to submassive pulmonary embolism, right pulmonary infarct.
Submassive bilateral pulmonary embolism without saddle emboli.
Left lower extremity DVT
Right lower lobe infiltrate secondary to pulmonary infarct.
Could not exclude community-acquired pneumonia.
Atrial fibrillation with rapid ventricular response, new onset
Lactic acidosis.
Reactive leukocytosis.
Acute kidney injury
Acute urinary retention requiring Young catheter.
Conditions prior to admission:
COPD
GERD.
Essential hypertension.
Restless leg syndrome
Former smoker.
Prior history of hysterectomy.
Plan:
Acute hypoxic respiratory failure secondary to submassive pulmonary embolism, right pulmonary infarct, possibly/could not rule out pneumonia.
Respiratory status improved and stable.
Oxygen requirements improved with pain control and down to 5 L nasal cannula.
Acute PE, submassive.
Left lower extremity DVT
Unprovoked.
Hemodynamically stable.
In review with interventional radiology it was no clear clinical indication for lytic treatment. Given the relative stability as well as no central emboli
Echocardiogram with preserved LV function LVEF 70 near 75%. Mild dilation of right ventricle. RV free wall hypokinesis with preserved function. PA pressure 46 mmHg.
Continue IV heparin for another 24 hours with plan to transition to Eliquis once stable respiratory status.
Right lower lobe infiltrate suspect pulmonary infarct
Could not rule out infection/pneumonia.
Adjust analgesic regimen.
Incentive spirometry.
Plan is to complete 5-day course of antibiotics per
Continue systemic corticosteroid. Transitioned to prednisone on 05/01 for slow taper
Paroxysmal atrial fibrillation.
New onset.
Initiated on IV Cardizem drip and converted to sinus rhythm.
Continue metoprolol for rate control
Cardiology following
Anticoagulation as above.
Complains of bilateral mostly left side groin and hip pain
Exam unremarkable with full range of motion and no evidence for hematoma.
Hemoglobin dropped from 15-11 and had been plateau over the last 3 days.
While on IV heparin, will check CT scan of the abdomen pelvis with concern for possible retroperitoneal hematoma.
Continue heparin with caution.
Acute kidney injury
Suspect multifactorial due to prerenal stimuli with relative hypotension and acute PE as well as component of retention.
Young catheter inserted on 04/28
Hydration, currently off IV fluids encourage oral intake
Hopefully voiding trial later on 04/29 and with increase activity
GERD
Continue GI prophylaxis with PPI
Essential hypertension baseline preadmission regimen metoprolol, lisinopril, hydrochlorothiazide
Metoprolol dose adjustment for A-fib baseline holding ramipril and HCTZ given marginal BP.
Restless leg syndrome on Requip.
Dyslipidemia on statin
Anticipated Discharge: > 48 hours
Subjective/Interval History
-
Date of Service: May 01, 2024
Objective Data
-
Labs:
Laboratory Results
05/01/24 05/01/24 05/01/24
02:04 07:48 09:59
WBC 13.7 H
Hgb 11.7 L
Hct 34.5 L
Plt Count 220
APTT 107.1 H 79.3 H
Sodium
Potassium
Chloride
Carbon Dioxide
BUN
Creatinine
Glucose
Calcium
05/01/24
10:00
WBC
Hgb
Hct
Plt Count
APTT
Sodium 137
Potassium 4.3
Chloride 107
Carbon Dioxide 21 L
BUN 32 H
Creatinine 0.8
Glucose 143 H
Calcium 9.5
Vital Signs:
Vital Signs
Temp Pulse Resp BP Pulse Ox
97.5 F 77 20 141/79 96
05/01/24 11:41 05/01/24 11:41 05/01/24 11:41 05/01/24 11:41 05/01/24 12:12
I&O
04/30/24 05/01/24 05/02/24
06:59 06:59 06:59
Intake Total 1169 / 1177 128 / 128
Output Total 520 / 520 200 / 200
Balance 649 / 657 -72 / -72
Physical Exam
-
General: Well Developed and No Apparent Distress
HEENT: Normocephalic, Atraumatic and Moist Mucous Membranes
Respiratory: Clear to Auscultation and Decreased Breath Sounds
Cardiac: Regular Rhythm and S1/S2; Negative Murmur, Rub or Gallop
GI: Soft, Nontender, Nondistended and Normal Bowel Sounds; Negative Organomegaly
Rectal: Deferred by Provider
Genito-urinary: Young
Musculoskeletal: No Clubbing, No Cyanosis and No Edema
Skin: Negative Rash
Neuro: Nonfocal/Grossly Intact
--- NOTE | 2024-05-01 15:21 | W.PN.CARDCBS ---
Today's Communication / Plan
-
Increase beta-constanza
Monitor on telemetry
CT scan rule out bleed
Impression / Plan
-
PCP: Dr. Tomlin
Cardiology: None prior to admission, first seen by Dr Álvarez
Impression:
Acute hypoxic respiratory failure
B/L submassive PE
LLE DVT
Chest pain
Elevated Troponin
Abnormal echo
Paroxysmal Afib with RVR, now SR
Paroxysmal SVT
Left hip pain
JUVENAL
COPD
Former smoker
HTN
Hyperlipidemia
Echo 04/28/2024: EF 70 to 75%, mild concentric LVH, mildly dilated RV, RV free wall is hypokinetic with preserved function at the RV apex consistent with Olson sign and suggestive of right heart strain, mod TR with PAP 46 mmHg
Plan:
-Patient came to ER early this morning with complaints of hemoptysis and pain with deep inspiration and was admitted with PE, cardiology is now consulted for an episode of A-fib. Patient lives independently and sees her PCP for an annual
physical and has a h/o COPD, but does not see a cytogenetics technologist. She had been coughing for a few days prior to admission and someone in her home has PNA. She noted that at times when coughing there was some blood, but then early this morning she had
pain on her right side of her chest with deep breath and cough and she thought she may have pneumonia. In ER the CT of her chest showed evidence of bilateral PEs, but no saddle PE. While in ER patient went into SVT with a heart rate up to
190 and was hypotensive. Patient was given adenosine 6 mg IV x 1 and then 12 mg IV x1 which slowed her rapid rhythm and looked more like A-fib. She was then started on a Cardizem drip. Patient does not see a farm tractor mechanic and there is no known
history of A-fib. Patient was started on heparin drip and there was consideration for IR intervention, but it was felt there is no indication for thrombectomy as there was no saddle component to her PE. Additionally thrombolytic therapy was
considered, but patient has improved since admission and for now we will continue with heparin drip.
-Heparin gtt for PE
-Continue to follow tele
-Outpatient dose of Toprol XL 100 mg daily, resumed, patient tolerating well; Will add an additional 50 mg at bedtime to assist in long-term coverage of heart rate. Patient had episode of paroxysmal A-fib this morning with return to sinus rhythm
with additional rate controlling agent
� Hemoglobin noted to be 11.7 unchanged for past 2 days however there had been a significant drop. CT scan pending by primary service
-Outpatient dose of HCTZ 25 mg daily on hold, re-introduce slowly possibly on discharge
-Outpatient dose of ramipril 10 mg daily on hold, re-introduce slowly possibly on discharge
-Troponin flat at 0.106 and consistent with nonischemic myocardial injury Troponin elevation due to PE.
-Echo as noted with preserved EF and some RV hypokinesis and strain
-Patient was not felt to be a candidate for thrombectomy as not a saddle PE and also not a candidate for lytics due to improving hemodynamics.
Progress Note - Research Analyst
Subjective
Date of Service: May 01, 2024
Patient seen and examined. In a.m., patient had episode of PAF with rapid ventricular response. Patient given IV diltiazem with improvement in heart rate subsequent spontaneous return to sinus rhythm. Patient tolerating anticoagulation however
noted hemoglobin drop, left hip pain, patient to undergo CT scan. Patient denies any chest pain, palpitations, weakness. She notes improvement in shortness of breath and cough. No other complaints at this time.
Objective
Labs:
05/01/24 09:59
05/01/24 10:00
Labs
Hgb 11.7 g/dL (12.0-16.0) L 05/01/24 09:59
Hct 34.5 % (37.0-47.0) L 05/01/24 09:59
Plt Count 220 10^3/uL (130-400) 05/01/24 09:59
PT 15.8 Sec (11.4-14.6) H 04/30/24 03:45
INR 1.23 04/30/24 03:45
APTT 79.3 Sec (23.4-35.0) H 05/01/24 07:48
Sodium 137 mmol/L (135-145) 05/01/24 10:00
Potassium 4.3 mmol/L (3.5-5.1) 05/01/24 10:00
BUN 32 mg/dl (7-17) H 05/01/24 10:00
Creatinine 0.8 mg/dL (0.6-1.0) 05/01/24 10:00
Glucose 143 mg/dl (70-99) H 05/01/24 10:00
Troponins
04/28/24 04/28/24 04/29/24
17:34 23:55 05:37
Troponin I 1.650 H* D 0.902 H* D 0.531 H* D
Vital Signs and I&O:
Vital Signs
Temp Pulse Resp BP Pulse Ox
97.5 F 70 16 141/79 96
05/01/24 11:41 05/01/24 14:01 05/01/24 14:01 05/01/24 11:41 05/01/24 12:12
Vital Signs
Temp Pulse Resp BP Pulse Ox
97.5 F 70 16 141/79 96
05/01/24 11:41 05/01/24 14:01 05/01/24 14:01 05/01/24 11:41 05/01/24 12:12
Intake & Output
04/29/24 04/30/24 05/01/24 05/02/24
06:59 06:59 06:59 06:59
Intake Total 2465 / 2473 1169 / 1177 128 / 128
Output Total 605 / 605 520 / 520 200 / 200
Balance 1860 / 1868 649 / 657 -72 / -72
Physical Exam
Physical Exam
GENERAL: no acute distress
EYE: sclera anicteric
NECK: Supple, no JVD, no carotid bruit appreciated
ENT: normal nose, moist mucosal membranes
CARDIAC: Regular rate and rhythm, +S1/S2, no murmur, rubs, or gallops
CHEST/PULMONARY: Normal effort, clear breath sounds
ABDOMEN: Soft, without focal tenderness or distention
NEUROLOGICAL: Alert and oriented x3
SKIN: Warm and dry, no rash
PSYCH: Normal and appropriate interaction.
[2024-05-01 15:40] VITALS: BP 132/73
--- NOTE | 2024-05-01 18:19 | W.PN.UPDATE ---
Update Note
Progress Note Update
Discussed with attending physician Dr. Calvin.
Patient's CT AP noted right iliacus muscle hematoma.
She is currently on heparin drip for submassive PE.
Plan is to continue current heparin drip, playground monitor for frequent vital sign checking, check hemoglobin every 8 hours.
[2024-05-01] MEDS: HEPARIN 25000 UNITS/250 ML IV (18:24)
[2024-05-01 19:09] LABS: Hematocrit 34.7 % (37.0-47.0); Hemoglobin 11.8 g/dL (12.0-16.0)
[2024-05-01 19:45] VITALS: BP 147/98
[2024-05-01] MEDS: REQUIP 5 MG PO (20:24)
[2024-05-01] MEDS: TOPROL XL 50 MG PO (22:44)
[2024-05-01 23:26] VITALS: BP 162/95
[2024-05-02] VITALS (10 sets, daily range): BP systolic 144–186; BP diastolic 74–103; PULSE 79; O2SAT 93
[2024-05-02] MEDS: APRESOLINE 10 MG IV ×2 (03:54→14:19)
[2024-05-02] MEDS: ZOFRAN 4 MG IV (03:59)
[2024-05-02 04:15] LABS: % Basophils 0.2 % (0-2); % Eosinophils 0.5 % (0-6); % Immature Granulocytes 1.1 % (0-0.5); % Lymphocytes 10.5 % (20.5-51.1); % Monocytes 9.8 % (1.7-9.3); % Neutrophils 77.9 % (42.2-75.2); Absolute Eosinophils 0.1 10^3/uL (0-0.7); Absolute Immature Granulocytes 0.2 10^3/uL (0-0.05); Absolute Lymphocytes 1.5 10^3/uL (1.2-3.4); Absolute Monocytes 1.4 10^3/uL (0.1-0.6); Absolute Neutrophils 10.9 10^3/uL (1.4-6.5); Hematocrit 36.5 % (37.0-47.0); Hemoglobin 12.5 g/dL (12.0-16.0); Mean Corp Hgb Conc. 34.2 g/dL (33.0-37.0); Mean Corpuscular Hgb 32.1 pg (27.0-31.0); Mean Corpuscular Volume 93.6 fL (81.0-99.0); Mean Platelet Volume 9.5 fL (7.4-10.4); Nucleated Red Blood Cells % 0 %; Platelet Count 236 10^3/uL (130-400); Red Cell Dist. Width 12.9 % (11.5-14.5)
[2024-05-02] MEDS: TYLENOL PO ×2 (04:16)
[2024-05-02 04:17] LABS: Hematocrit 36.7 % (37.0-47.0); Hemoglobin 12.5 g/dL (12.0-16.0)
[2024-05-02 04:26] LABS: APTT 84.7 Sec (23.4-35.0)
[2024-05-02 04:38] LABS: Blood Urea Nitrogen 26 mg/dl (7-17); Calcium 9.5 mg/dl (8.4-10.2); Carbon Dioxide 23 mmol/L (22-30); Chloride 105 mmol/L (98-107); Estimated Creatinine Clearance 72 ml/min; Glucose 131 mg/dl (70-99); Potassium 3.8 mmol/L (3.5-5.1); Sodium 132 mmol/L (135-145); eGFR > 60.00
--- NOTE | 2024-05-02 06:04 | PTCARENOTE ---
Pt aaox3 able to make her needs known,anxious at times. Pt continued on heparin drip as per protocol.ROUTE RETURNER leadership development consultant made aware of pt BP 179/95,PRN hydralazine given as ordered.Pt repeat BP-149/74,HR-80, Pt c/o hip pain, refuses to take any
prn/scheduled tylenol at this time & prefers to sleep. PUBLIC POLICY COORDINATOR made aware.No new orders at this time.Plan of care continued.
[2024-05-02] MEDS: ATROVENT NEBULES 0.5 MG INH ×3 (07:24→19:58)
[2024-05-02] MEDS: XOPENEX 1.25 MG INHALANT SOLUTION INH ×3 (07:24→19:58)
[2024-05-02] MEDS: PROZAC 10 MG PO (08:56)
[2024-05-02] MEDS: VIBRAMYCIN 100 MG PO ×2 (08:57→20:55)
[2024-05-02] MEDS: PROTONIX 40 MG PO ×2 (08:57→20:53)
[2024-05-02] MEDS: TOPROL XL 100 MG PO (08:57)
[2024-05-02] MEDS: DELTASONE 40 MG PO (08:57)
[2024-05-02] MEDS: TYLENOL 650 MG PO ×4 (08:57→20:54)
[2024-05-02] MEDS: ROCEPHIN 1000 MG IV (09:00)
[2024-05-02] MEDS: STERILE WATER FOR INJECTION 10 ML IV (09:00)
--- NOTE | 2024-05-02 09:11 | W.PN.PUL.V3 ---
Today's Communication / Plan
-
Follow hemoglobin-stable
Monitor for iliopsoas hematoma enlargement
Heparin drip-begin to convert to oral anticoagulant if hemoglobin stable
Wean oxygen
Incentive spirometry
Analgesia-avoid oversedation
Assessment
-
78-year-old woman with past medical history noted, admitted through the emergency room with cough, right-sided pleuritic type chest pain, mild hypoxemia, shortness of breath for the last 2-day. Started acutely. She was on her previous normal state
of health prior to this.
Acute hypoxemic respiratory failure due to submassive pulmonary embolism-currently on nonrebreather mask
Unprovoked
Positive troponin
Positive proBNP
Sinus tachycardia on EKG
CT chest reviewed: Reviewed, bilateral segmental pulmonary embolism. No saddle component. Evidence for RV dysfunction. Right lower lobe abnormality suggestive of possible pulmonary infarct versus pneumonia.
Severe right-sided pleuritic type chest pain due to likely pulmonary infarct
Cannot rule out pneumonia: Leukocytosis/coughing-sick contact at home.
Metabolic acidosis-mildly increased lactic acid
Leukocytosis
Acute kidney injury
Iliopsoas hematoma
Anemia
Obstructive lung disease suspected with significant wheezing
Right pleural effusion
Conditions present prior admission:
GERD
Hypertension
Hypercholesterolemia
Emphysema/COPD-not on inhalers
Restless leg syndrome
Previous superficial vein thrombosis in the past
Former smoker
History of hysterectomy
History of fatty liver
Denies family history of clotting.
-
Plan
Respiratory status slowly improving
Supplemental oxygen as needed-attempt to wean
Incentive spirometry
Eventually monitor radiographically-suspect right lower lobe radiographic abnormalities or pulmonary infarct
Nebulizers as needed-some wheezing on exam
Prednisone 40 mg daily
Monitor right pleural effusion-thoracentesis if becomes symptomatic-currently small
Heparin drip-convert to oral anticoagulant
Oral anticoagulant for minimum of 3-6 months with subsequent hypercoagulable workup
Outpatient pulm evaluation including CT chest in 3 months to ensure clot resolution
Benefits and risks for thrombolytics and thrombectomy have been reviewed-risks outweigh benefits
Continue standard of care therapy with anticoagulation and conversion to oral anticoagulants
Monitor renal function-improved
Check cultures
Empiric antibiotics-finished a finite course
Monitor tachycardia
Cardiology following-correspondence reviewed
Beta-blockers increased
Monitor hemoglobin-stable at 12.5
Transfuse as needed
CT abdomen and pelvis 05/01/2024-with right iliopsoas muscle hematoma, anterolateral left gluteal ramesh muscle lipoma, small right pleural effusion, pulmonary infarction noted
DVT prophylaxis-on heparin
Nutrition
Eventual increase activity
Family has been updated by Dr. Su on a daily basis at the bedside last time 04/30/2024.
Outpatient pulmonary follow-up after discharge
Subjective Data
-
Date of Service:
Date of Service: May 02, 2024
Chief Complaint: Pulmonary Follow Up and Dyspnea Follow Up
Subjective:
Still with some pleurisy, no complaints of shortness of breath at rest, no abdominal pain
Review of Systems
General: Other (Per HPI)
Objective Data
Data Reviewed
Vital Signs / I&O:
Vital Signs
Temp Pulse Resp BP Pulse Ox
98 F 77 20 168/83 96
05/02/24 08:13 05/02/24 08:57 05/02/24 08:13 05/02/24 08:57 05/02/24 08:13
Intake and Output
05/01/24 05/02/24 05/03/24
06:59 06:59 06:59
Intake Total 128 / 128 1308 / 1308
Output Total 200 / 200 3050 / 3050
Balance -72 / -72 -1742 / -1742
SaO2: 96
Nasal Cannula flow liters per minute: 2
Physical Exam
General: Respiratory Distress (n) and Comfortable
HEENT: Normocephalic, Anicteric and Moist Mucous Membranes
Cardiovascular: Regular Rhythm
Respiratory: Wheeze (n), Crackles (n), Rhonchi (n), Non-Labored Respirations and Accessory Resp Muscle Use (n)
GI: Soft, Non Distended and Non Tender
Neurology: Awake, Alert and No Motor Deficits
Skin: Warm, Good Color, Cyanosis (n) and Jaundice (n)
Labs/Micro/Reports
Lab Data
05/02/24 04:02
05/02/24 04:02
Laboratory Results
05/02/24
04:02
APTT 84.7 H
Microbiology
04/28/24 10:52 Blood/Venous Blood Culture - Preliminary
No Growth in 72 hours- Final report to follow
04/28/24 10:34 Blood/Venous Blood Culture - Preliminary
No Growth in 72 hours- Final report to follow
--- NOTE | 2024-05-02 10:30 | CM ---
Addendum entered by Camilla Liriano 05/02/24 18:00:
Pt was 88% on room air at 13:15. O2 weaning in progress; CM to watch for O2 needs.
Original Note:
CM following for discharge planning. Pt is currently on 4 LO2, SNF recommended, however pt is not agreeable. Daughter requests referral to [facility] at discharge.
Plan: Discharge to home with [facility]. Watch for nebulizer and O2 needs.
--- NOTE | 2024-05-02 14:36 | W.PN.HOSP.TC ---
Today's Communication/Plan
-
Wean off O2 as tolerates.
Right iliacus us muscle hematoma confirmed with CT scan. Secondary to systemic anticoagulation
Hemoglobin remained stable while being on IV heparin
Monitor hemoglobin closely.
Continue IV heparin with caution with plan to transition to oral anticoagulation if stable over the next 24 to 48 hours
Continue antibiotics through 05/03
Case management consultation for [facility] sonya.
Assessment / Plan
Assessment / Plan
78-year-old female admitted overnight with shortness of breath. She has had a cough also had some hemoptysis. Patient stated that her granddaughter was sick with pneumonia
Patient was diagnosed with bilateral PE in the ER. She then went into SVT required 2 doses of adenosine and then rhythm looked like A-fib was given diltiazem bolus as well as a drip was started. Patient complained of right-sided rib pain and was
very short of breath. IV fluids were started.
Impression:
Acute hypoxic respiratory failure secondary to submassive pulmonary embolism, right pulmonary infarct.
Submassive bilateral pulmonary embolism without saddle emboli.
Left lower extremity DVT
Right lower lobe infiltrate secondary to pulmonary infarct.
Could not exclude community-acquired pneumonia.
Atrial fibrillation with rapid ventricular response, new onset
Lactic acidosis.
Reactive leukocytosis.
Acute kidney injury
Acute urinary retention requiring Young catheter.
Right iliac us muscle hematoma
Conditions prior to admission:
COPD
GERD.
Essential hypertension.
Restless leg syndrome
Former smoker.
Prior history of hysterectomy.
Plan:
Acute hypoxic respiratory failure secondary to submassive pulmonary embolism, right pulmonary infarct, possibly/could not rule out pneumonia.
Respiratory status improved and stable.
Oxygen requirements improved with pain control and down to 5 L nasal cannula.
Acute PE, submassive.
Left lower extremity DVT
Unprovoked.
Hemodynamically stable.
In review with interventional radiology it was no clear clinical indication for lytic treatment. Given the relative stability as well as no central emboli
Echocardiogram with preserved LV function LVEF 70 near 75%. Mild dilation of right ventricle. RV free wall hypokinesis with preserved function. PA pressure 46 mmHg.
Continue IV heparin for another 24 hours with plan to transition to Eliquis once stable respiratory status.
Right lower lobe infiltrate suspect pulmonary infarct
Could not rule out infection/pneumonia.
Adjust analgesic regimen.
Incentive spirometry.
Plan is to complete 5-day course of antibiotics per
Continue systemic corticosteroid. Transitioned to prednisone on 05/01 for slow taper
Paroxysmal atrial fibrillation.
New onset.
Initiated on IV Cardizem drip and converted to sinus rhythm.
Continue metoprolol for rate control
Cardiology following
Anticoagulation as above.
Right iliacus us muscle hematoma confirmed with CT scan. Secondary to systemic anticoagulation
Hemoglobin remained stable while being on IV heparin
Monitor hemoglobin closely.
Continue IV heparin with caution with plan to transition to oral anticoagulation if stable over the next 24 to 48 hours
Acute kidney injury
Suspect multifactorial due to prerenal stimuli with relative hypotension and acute PE as well as component of retention.
Young catheter inserted on 04/28
Hydration, currently off IV fluids encourage oral intake
Hopefully voiding trial later on 04/29 and with increase activity
GERD
Continue GI prophylaxis with PPI
Essential hypertension baseline preadmission regimen metoprolol, lisinopril, hydrochlorothiazide
Metoprolol dose adjustment for A-fib baseline holding ramipril and HCTZ given marginal BP.
Restless leg syndrome on Requip.
Dyslipidemia on statin
Anticipated Discharge: > 48 hours
Subjective/Interval History
-
Date of Service: May 02, 2024
Objective Data
-
Labs:
Laboratory Results
05/02/24 05/02/24 05/02/24
04:02 04:02 04:02
WBC 14.0 H
Hgb 12.5 12.5
Hct 36.5 L 36.7 L
Plt Count 236
APTT 84.7 H
Sodium 132 L
Potassium 3.8
Chloride 105
Carbon Dioxide 23
BUN 26 H
Creatinine 0.7
Glucose 131 H
Calcium 9.5
Vital Signs:
Vital Signs
Temp Pulse Resp BP Pulse Ox
97.6 F 75 14 167/91 88
05/02/24 11:28 05/02/24 14:19 05/02/24 13:15 05/02/24 14:19 05/02/24 13:15
I&O
05/01/24 05/02/24 05/03/24
06:59 06:59 06:59
Intake Total 128 / 128 1308 / 1308
Output Total 200 / 200 3050 / 3050 600 / 600
Balance -72 / -72 -1742 / -1742 -600 / -600
Physical Exam
-
General: Well Developed and No Apparent Distress
HEENT: Normocephalic, Atraumatic and Moist Mucous Membranes
Respiratory: Clear to Auscultation and Decreased Breath Sounds
Cardiac: Regular Rhythm and S1/S2; Negative Murmur, Rub or Gallop
GI: Soft, Nontender, Nondistended and Normal Bowel Sounds; Negative Organomegaly
Rectal: Deferred by Provider
Genito-urinary: Young
Musculoskeletal: No Clubbing, No Cyanosis and No Edema
Skin: Negative Rash
Neuro: Nonfocal/Grossly Intact
[2024-05-02] MEDS: ULTRAM 50 MG PO (15:23)
--- NOTE | 2024-05-02 16:24 | W.PN.UPDATE ---
Update Note
Progress Note Update
Patient's tele reviewed by me and she has brief self limited paroxysms of Afib. Overall HRs better controlled on increased dose of Toprol XL 100 mg AM and 50 mg PM daily, would continue. Patient is new to anticoagulation and was found to have right
iliacus muscle hematoma 05/01/24 PM so remains on Heparin gtt and has not yet transitioned to OAC. Initial OAC dosing will be for PE protocol, but patient will have a long-term indication for OAC for Afib and will eventual transition to Afib dosing.
Troponin flat at 0.106 and consistent with nonischemic myocardial injury Troponin elevation due to PE. Echo as noted with preserved EF and some RV hypokinesis and strain. Will arrange for cardiology follow up. Please call with questions.
[2024-05-02] MEDS: REQUIP 5 MG PO (20:55)
[2024-05-02] MEDS: TOPROL XL 50 MG PO (20:58)
[2024-05-02] MEDS: HEPARIN 25000 UNITS/250 ML IV (22:19)
[2024-05-03] VITALS (7 sets, daily range): BP systolic 116–177; BP diastolic 67–97; PULSE 73; O2SAT 97
[2024-05-03] MEDS: TYLENOL PO ×7 (03:59→22:36)
[2024-05-03 06:06] LABS: % Basophils 0.3 % (0-2); % Eosinophils 0.7 % (0-6); % Immature Granulocytes 1.6 % (0-0.5); % Lymphocytes 23.7 % (20.5-51.1); % Monocytes 11.2 % (1.7-9.3); % Neutrophils 62.5 % (42.2-75.2); Absolute Eosinophils 0.1 10^3/uL (0-0.7); Absolute Immature Granulocytes 0.2 10^3/uL (0-0.05); Absolute Lymphocytes 3.2 10^3/uL (1.2-3.4); Absolute Monocytes 1.5 10^3/uL (0.1-0.6); Absolute Neutrophils 8.4 10^3/uL (1.4-6.5); Hematocrit 37.3 % (37.0-47.0); Mean Corp Hgb Conc. 34.9 g/dL (33.0-37.0); Mean Corpuscular Hgb 32.3 pg (27.0-31.0); Mean Corpuscular Volume 92.8 fL (81.0-99.0); Mean Platelet Volume 9.4 fL (7.4-10.4); Nucleated Red Blood Cells % 0 %; Platelet Count 234 10^3/uL (130-400); Red Blood Cell Count 4.02 10^6/uL (4.20-5.40); Red Cell Dist. Width 12.6 % (11.5-14.5); White Blood Cell Count 13.4 10^3/uL (4.8-10.8)
[2024-05-03 06:32] LABS: Blood Urea Nitrogen 25 mg/dl (7-17); Calcium 9.3 mg/dl (8.4-10.2); Carbon Dioxide 24 mmol/L (22-30); Chloride 103 mmol/L (98-107); Estimated Creatinine Clearance 56 ml/min; Glucose 99 mg/dl (70-99); Potassium 3.3 mmol/L (3.5-5.1); Sodium 136 mmol/L (135-145); eGFR > 60.00
[2024-05-03] MEDS: ATROVENT NEBULES 0.5 MG INH ×3 (07:36→19:37)
[2024-05-03] MEDS: XOPENEX 1.25 MG INHALANT SOLUTION INH ×3 (07:37→19:37)
[2024-05-03] MEDS: HEPARIN 2900 UNITS IV (08:30)
[2024-05-03] MEDS: VIBRAMYCIN 100 MG PO (09:05)
[2024-05-03] MEDS: DELTASONE 40 MG PO (09:05)
[2024-05-03] MEDS: TOPROL XL 100 MG PO (09:05)
[2024-05-03] MEDS: PROTONIX 40 MG PO ×2 (09:05→20:30)
[2024-05-03] MEDS: PROZAC 10 MG PO (09:05)
[2024-05-03] MEDS: ULTRAM 50 MG PO ×2 (09:15→20:29)
--- NOTE | 2024-05-03 09:49 | W.PN.PUL.V3 ---
Today's Communication / Plan
-
Hemoglobin stable
Convert to oral anticoagulant
Increase activity
Follow hemoglobin
Outpatient pulmonary follow-up
Assessment
-
78-year-old woman with past medical history noted, admitted through the emergency room with cough, right-sided pleuritic type chest pain, mild hypoxemia, shortness of breath for the last 2-day. Started acutely. She was on her previous normal state
of health prior to this.
Acute hypoxemic respiratory failure due to submassive pulmonary embolism-currently on nonrebreather mask
Unprovoked
Positive troponin
Positive proBNP
Sinus tachycardia on EKG
CT chest reviewed: Reviewed, bilateral segmental pulmonary embolism. No saddle component. Evidence for RV dysfunction. Right lower lobe abnormality suggestive of possible pulmonary infarct versus pneumonia.
Severe right-sided pleuritic type chest pain due to likely pulmonary infarct
Cannot rule out pneumonia: Leukocytosis/coughing-sick contact at home.
Metabolic acidosis-mildly increased lactic acid
Leukocytosis
Acute kidney injury
Iliopsoas hematoma
Anemia
Obstructive lung disease suspected with significant wheezing
Right pleural effusion
Paroxysmal atrial fibrillation
Conditions present prior admission:
GERD
Hypertension
Hypercholesterolemia
Emphysema/COPD-not on inhalers
Restless leg syndrome
Previous superficial vein thrombosis in the past
Former smoker
History of hysterectomy
History of fatty liver
Denies family history of clotting.
-
Plan
Respiratory status improved
Supplemental oxygen as needed-attempt to wean
Incentive spirometry encouraged
Eventually monitor radiographically-suspect right lower lobe radiographic abnormalities or pulmonary infarct
Nebulizers as needed-some wheezing on exam
Prednisone 40 mg daily
Monitor right pleural effusion-thoracentesis if becomes symptomatic-currently small
Heparin drip-convert to oral anticoagulant
Oral anticoagulant for minimum of 3-6 months with subsequent hypercoagulable workup
Outpatient pulm evaluation including CT chest in 3 months to ensure clot resolution
Benefits and risks for thrombolytics and thrombectomy have been reviewed-risks outweigh benefits
Continue standard of care therapy with anticoagulation and conversion to oral anticoagulants
Monitor renal function-improved
Check cultures
Empiric antibiotics-finished a finite course
Monitor tachycardia
Cardiology following-correspondence [id number] paroxysms of A-fib
Beta-blockers increased
Monitor hemoglobin-stable at 13.0
Transfuse as needed-has not needed
CT abdomen and pelvis 05/01/2024-with right iliopsoas muscle hematoma, anterolateral left gluteal ramesh muscle lipoma, small right pleural effusion, pulmonary infarction noted
DVT prophylaxis-on heparin
Nutrition
Eventual increase activity
Family has been updated by Dr. Su on a daily basis at the bedside last time 04/30/2024.
Outpatient pulmonary follow-up after discharge
Subjective Data
-
Date of Service:
Date of Service: May 03, 2024
Chief Complaint: Pulmonary Follow Up and Dyspnea Follow Up
Subjective:
No significant change and left hip pain, no shortness of breath, pleurisy, productive cough
Review of Systems
General: Other (Per HPI)
Objective Data
Data Reviewed
Vital Signs / I&O:
Vital Signs
Temp Pulse Resp BP Pulse Ox
97.7 F 66 16 148/73 94
05/03/24 07:35 05/03/24 07:40 05/03/24 07:40 05/03/24 07:35 05/03/24 09:07
Intake and Output
05/02/24 05/03/24 05/04/24
06:59 06:59 06:59
Intake Total 1308 / 1308 120 / 120
Output Total 3050 / 3050 1300 / 1300 300 / 300
Balance -1742 / -1742 -1180 / -1180 -300 / -300
SaO2: 94
Nasal Cannula flow liters per minute: 3
Physical Exam
General: Respiratory Distress (n) and Comfortable
HEENT: Normocephalic, Anicteric and Moist Mucous Membranes
Cardiovascular: Regular Rhythm
Respiratory: Wheeze (n), Crackles (n), Rhonchi (n), Non-Labored Respirations and Accessory Resp Muscle Use (n)
GI: Soft, Non Distended and Non Tender
Neurology: Awake, Alert and No Motor Deficits
Skin: Warm, Good Color, Cyanosis (n) and Jaundice (n)
Labs/Micro/Reports
Lab Data
05/03/24 05:54
05/03/24 05:54
Laboratory Results
05/03/24
05:54
APTT 71.0 H
Microbiology
04/28/24 10:52 Blood/Venous Blood Culture - Preliminary
No Growth in 4 days- Final report to follow
04/28/24 10:34 Blood/Venous Blood Culture - Preliminary
No Growth in 4 days- Final report to follow
--- NOTE | 2024-05-03 10:41 | CM ---
Today at 07:40 pt is 94% on 3L O2. CM continues to follow for discharge planning and O2 needs. Today at 07:40 pt is 94% on 3L O2.
Plan: Discharge to home with Y[facility] HINES. Watch for nebulizer and O2 needs.
[2024-05-03 14:37] LABS: APTT 173.2 Sec (23.4-35.0)
--- NOTE | 2024-05-03 15:02 | PN.CDI ---
CDI
- -
CDI:
Physician Documentation Request
Admit Date: 04/28/24 07:59
Dear Doctor Marixa,
Patient admitted with pulmonary embolism.
04/28 Echo Report: 'Mildly dilated right ventricle. Right ventricular free wall is hypokinetic with preserved function of the RV apex consistent with Olson sign and suggestive of right heart strain.'
05/02 Hospitalist PN: 'Submassive bilateral pulmonary embolism without saddle emboli.'
05/03 Pulmonary PN: 'bilateral segmental pulmonary embolism. No saddle component. Evidence for RV dysfunction.'
Based on the above, could you clarify in the progress notes, the appropriate diagnosis, if significant, that supports the above abnormalities and additional evaluation, monitoring and/or treatment rendered:
Pulmonary embolism with acute cor pulmonale
Pulmonary embolism without acute cor pulmonale
Other
Use of terms such as suspected, likely, concern for, or probable (associated with a specific diagnosis that is being evaluated, monitored, or treated as if it exists) are acceptable and can be coded in the inpatient setting, when documented at the
time of discharge.
Thank you,
Sue Chase RN, BSN
CDI Specialist
Available via [place] text
Please use your independent medical judgment in providing your response.
--- NOTE | 2024-05-03 15:08 | PN.CDI ---
CDI
- -
CDI:
Physician Documentation Request
Admit Date: 04/28/24 07:59
Dear Doctor Marixa,
04/28 Lower Extremity US: 'The examination is positive in the left lower extremity for occlusive thrombus in the proximal, mid, and distal components of a branch of the gastrocnemius vein.'
05/02 Hospitalist PN: 'Left lower extremity DVT'
Clarify which of the following accurately represents the acuity of the DVT. Possible options might include:
____ Acute
Chronic stable condition
____ Other
Use of terms such as suspected, likely, concern for, or probable (associated with a specific diagnosis that is being evaluated, monitored, or treated as if it exists) are acceptable and can be coded in the inpatient setting, when documented at the
time of discharge.
Thank you,
Sue Chase RN, BSN
CDI Specialist
Available via [place] text
Please use your independent medical judgment in providing your response.
[2024-05-03] MEDS: KCL 40 MEQ PO (15:30)
--- NOTE | 2024-05-03 15:32 | CM ---
CM asked to hill Xarelto and Eliquis - Dr. Calvin notified - Copay for Eliquis or Xarelto is $47 for 30 days or $131 for 90 days.
--- NOTE | 2024-05-03 17:26 | W.PN.HOSP.TC ---
Today's Communication/Plan
-
Home O2 assessment.
Repeat chest x-ray to follow-up with right lower lobe infiltrate/infarct.
Transition of heparin to Eliquis.
Completed course of antibiotics.
Decrease prednisone to 30 mg
Assessment / Plan
Assessment / Plan
78-year-old female admitted overnight with shortness of breath. She has had a cough also had some hemoptysis. Patient stated that her granddaughter was sick with pneumonia
Patient was diagnosed with bilateral PE in the ER. She then went into SVT required 2 doses of adenosine and then rhythm looked like A-fib was given diltiazem bolus as well as a drip was started. Patient complained of right-sided rib pain and was
very short of breath. IV fluids were started.
Impression:
Acute hypoxic respiratory failure secondary to submassive pulmonary embolism, right pulmonary infarct.
Submassive bilateral pulmonary embolism without saddle emboli.
Left lower extremity DVT
Right lower lobe infiltrate secondary to pulmonary infarct.
Could not exclude community-acquired pneumonia.
Atrial fibrillation with rapid ventricular response, new onset
Lactic acidosis.
Reactive leukocytosis.
Acute kidney injury
Acute urinary retention requiring Young catheter.
Right iliac us muscle hematoma
Conditions prior to admission:
COPD
GERD.
Essential hypertension.
Restless leg syndrome
Former smoker.
Prior history of hysterectomy.
Plan:
Acute hypoxic respiratory failure secondary to submassive pulmonary embolism, right pulmonary infarct, possibly/could not rule out pneumonia.
Respiratory status improved and stable.
Oxygen requirements improved with pain control and down to 5 L nasal cannula.
Acute PE, submassive.
Left lower extremity DVT
Unprovoked.
Hemodynamically stable.
In review with interventional radiology it was no clear clinical indication for lytic treatment. Given the relative stability as well as no central emboli
Echocardiogram with preserved LV function LVEF 70 near 75%. Mild dilation of right ventricle. RV free wall hypokinesis with preserved function. PA pressure 46 mmHg.
Transition off heparin to Eliquis on 05/03
Right lower lobe infiltrate suspect pulmonary infarct
Could not rule out infection/pneumonia.
Adjust analgesic regimen.
Incentive spirometry.
Plan is to complete 5-day course of antibiotics
Continue systemic corticosteroid. Transitioned to prednisone on 05/01 for slow taper
Paroxysmal atrial fibrillation.
New onset.
Initiated on IV Cardizem drip and converted to sinus rhythm.
Continue metoprolol for rate control
Cardiology following
Anticoagulation as above.
Right iliacus us muscle hematoma confirmed with CT scan. Secondary to systemic anticoagulation
Hemoglobin remained stable while being on IV heparin
Monitor hemoglobin closely.
Continue IV heparin with caution with plan to transition to oral anticoagulation if stable over the next 24 to 48 hours
Acute kidney injury
Suspect multifactorial due to prerenal stimuli with relative hypotension and acute PE as well as component of retention.
Young catheter inserted on 04/28
Hydration, currently off IV fluids encourage oral intake
Hopefully voiding trial later on 04/29 and with increase activity
GERD
Continue GI prophylaxis with PPI
Essential hypertension baseline preadmission regimen metoprolol, lisinopril, hydrochlorothiazide
Metoprolol dose adjustment for A-fib baseline holding ramipril and HCTZ given marginal BP.
Restless leg syndrome on Requip.
Dyslipidemia on statin
Anticipated Discharge: 24 - 48 hours
Subjective/Interval History
-
Date of Service: May 03, 2024
Objective Data
-
Labs:
Laboratory Results
05/03/24 05/03/24
05:54 13:46
WBC 13.4 H
Hgb 13.0
Hct 37.3
Plt Count 234
APTT 71.0 H 173.2 H*
Sodium 136
Potassium 3.3 L
Chloride 103
Carbon Dioxide 24
BUN 25 H
Creatinine 0.9
Glucose 99
Calcium 9.3
Vital Signs:
Vital Signs
Temp Pulse Resp BP Pulse Ox
98.1 F 73 18 125/67 96
05/03/24 15:33 05/03/24 15:33 05/03/24 15:33 05/03/24 15:33 05/03/24 15:33
I&O
05/02/24 05/03/24 05/04/24
06:59 06:59 06:59
Intake Total 1308 / 1308 120 / 120
Output Total 3050 / 3050 1300 / 1300 300 / 300
Balance -1742 / -1742 -1180 / -1180 -300 / -300
Physical Exam
-
General: Well Developed and No Apparent Distress
HEENT: Normocephalic, Atraumatic and Moist Mucous Membranes
Respiratory: Clear to Auscultation and Decreased Breath Sounds
Cardiac: Regular Rhythm and S1/S2; Negative Murmur, Rub or Gallop
GI: Soft, Nontender, Nondistended and Normal Bowel Sounds; Negative Organomegaly
Rectal: Deferred by Provider
Genito-urinary: Young
Musculoskeletal: No Clubbing, No Cyanosis and No Edema
Skin: Negative Rash
Neuro: Nonfocal/Grossly Intact
[2024-05-03] MEDS: TOPROL XL 50 MG PO (20:29)
[2024-05-03] MEDS: ELIQUIS 10 MG PO (20:29)
[2024-05-03] MEDS: REQUIP 5 MG PO (20:30)
[2024-05-04] MEDS: TYLENOL PO ×4 (03:01→15:25)
[2024-05-04 03:38] VITALS: BP 162/92
[2024-05-04] MEDS: ATROVENT NEBULES 0.5 MG INH ×2 (07:09→13:17)
[2024-05-04] MEDS: XOPENEX 1.25 MG INHALANT SOLUTION INH ×2 (07:09→13:17)
[2024-05-04 07:40] VITALS: BP 166/94
[2024-05-04] MEDS: ULTRAM 50 MG PO (08:30)
[2024-05-04] MEDS: ELIQUIS 10 MG PO (08:31)
[2024-05-04] MEDS: TOPROL XL 100 MG PO (08:31)
[2024-05-04] MEDS: PROZAC 10 MG PO (08:31)
[2024-05-04] MEDS: PROTONIX 40 MG PO (08:31)
[2024-05-04] MEDS: DELTASONE 30 MG PO (08:31)
[2024-05-04 09:06] LABS: % Basophils 0.2 % (0-2); % Eosinophils 0.4 % (0-6); % Immature Granulocytes 1.8 % (0-0.5); % Lymphocytes 26.7 % (20.5-51.1); % Monocytes 10.6 % (1.7-9.3); % Neutrophils 60.3 % (42.2-75.2); Absolute Eosinophils 0.1 10^3/uL (0-0.7); Absolute Immature Granulocytes 0.2 10^3/uL (0-0.05); Absolute Lymphocytes 3.5 10^3/uL (1.2-3.4); Absolute Monocytes 1.4 10^3/uL (0.1-0.6); Absolute Neutrophils 7.9 10^3/uL (1.4-6.5); Hemoglobin 13.9 g/dL (12.0-16.0); Mean Corp Hgb Conc. 33.9 g/dL (33.0-37.0); Mean Corpuscular Volume 94.5 fL (81.0-99.0); Mean Platelet Volume 9.2 fL (7.4-10.4); Nucleated Red Blood Cells % 0 %; Platelet Count 240 10^3/uL (130-400); Red Blood Cell Count 4.34 10^6/uL (4.20-5.40); Red Cell Dist. Width 12.7 % (11.5-14.5); White Blood Cell Count 13.2 10^3/uL (4.8-10.8)
[2024-05-04 09:49] LABS: Blood Urea Nitrogen 30 mg/dl (7-17); Calcium 9.2 mg/dl (8.4-10.2); Carbon Dioxide 24 mmol/L (22-30); Chloride 101 mmol/L (98-107); Estimated Creatinine Clearance 56 ml/min; Glucose 74 mg/dl (70-99); Potassium 3.9 mmol/L (3.5-5.1); Sodium 132 mmol/L (135-145); eGFR > 60.00
--- NOTE | 2024-05-04 09:52 | W.PN.PUL.V3 ---
Today's Communication / Plan
-
Hemoglobin stable
Wean oxygen
Increase activity
Continue oral anticoagulant-no evidence for bleeding
Monitor small right pleural effusion
Assessment
-
78-year-old woman with past medical history noted, admitted through the emergency room with cough, right-sided pleuritic type chest pain, mild hypoxemia, shortness of breath for the last 2-day. Started acutely. She was on her previous normal state
of health prior to this.
Acute hypoxemic respiratory failure due to submassive pulmonary embolism-currently on nonrebreather mask
Unprovoked
Positive troponin
Positive proBNP
Sinus tachycardia on EKG
CT chest reviewed: Reviewed, bilateral segmental pulmonary embolism. No saddle component. Evidence for RV dysfunction. Right lower lobe abnormality suggestive of possible pulmonary infarct versus pneumonia.
Severe right-sided pleuritic type chest pain due to likely pulmonary infarct
Cannot rule out pneumonia: Leukocytosis/coughing-sick contact at home.
Metabolic acidosis-mildly increased lactic acid
Leukocytosis
Acute kidney injury
Iliopsoas hematoma
Anemia
Obstructive lung disease suspected with significant wheezing
Right pleural effusion
Paroxysmal atrial fibrillation
Conditions present prior admission:
GERD
Hypertension
Hypercholesterolemia
Emphysema/COPD-not on inhalers
Restless leg syndrome
Previous superficial vein thrombosis in the past
Former smoker
History of hysterectomy
History of fatty liver
Denies family history of clotting.
-
Plan
Respiratory status slowly improving
Supplemental oxygen as needed-attempt to wean
Incentive spirometry encouraged
Eventually monitor radiographically-suspect right lower lobe radiographic abnormalities or pulmonary infarct
Nebulizers as needed-some wheezing on exam
Prednisone 30 mg daily-Taper
Monitor right pleural effusion-thoracentesis if becomes symptomatic-currently small
Chest x-ray 05/03/2024-small right pleural effusion
Heparin drip converted to oral anticoagulant
Oral anticoagulant for minimum of 3-6 months with subsequent hypercoagulable workup
Outpatient pulm evaluation including CT chest in 3 months to ensure clot resolution
Benefits and risks for thrombolytics and thrombectomy have been reviewed-risks outweigh benefits
Continue standard of care therapy with anticoagulation and conversion to oral anticoagulants
Monitor renal function-improved
Cultures reviewed
Empiric antibiotics-finished a finite course
Monitor tachycardia
Cardiology following-correspondence [id number] paroxysms of A-fib
Beta-blockers increased
Monitor hemoglobin-stable at 13.9
Transfuse as needed-has not needed
CT abdomen and pelvis 05/01/2024-with right iliopsoas muscle hematoma, anterolateral left gluteal ramesh muscle lipoma, small right pleural effusion, pulmonary infarction noted
DVT prophylaxis-on heparin
Nutrition
Eventual increase activity
Outpatient pulmonary follow-up after discharge
Subjective Data
-
Date of Service:
Date of Service: May 04, 2024
Chief Complaint: Pulmonary Follow Up and Dyspnea Follow Up
Subjective:
Feels better, still has some vague right-sided chest pains and left hip pain, no increase shortness of breath, no hemoptysis,
Review of Systems
General: Other (Per HPI)
Objective Data
Data Reviewed
Vital Signs / I&O:
Vital Signs
Temp Pulse Resp BP Pulse Ox
97.8 F 78 16 166/94 96
05/04/24 07:40 05/04/24 08:31 05/04/24 07:40 05/04/24 08:31 05/04/24 08:00
Intake and Output
05/03/24 05/04/24 05/05/24
06:59 06:59 06:59
Intake Total 120 / 120 720 / 720 240 / 240
Output Total 1300 / 1300 300 / 300
Balance -1180 / -1180 420 / 420 240 / 240
SaO2: 96
Nasal Cannula flow liters per minute: 2
Physical Exam
General: Respiratory Distress (n) and Comfortable
HEENT: Normocephalic, Anicteric and Moist Mucous Membranes
Cardiovascular: Regular Rhythm
Respiratory: Wheeze (n), Crackles (n), Rhonchi (n), Non-Labored Respirations and Accessory Resp Muscle Use (n)
GI: Soft, Non Distended and Non Tender
Neurology: Awake, Alert and No Motor Deficits
Skin: Warm, Good Color, Cyanosis (n) and Jaundice (n)
Labs/Micro/Reports
Lab Data
05/04/24 08:03
05/04/24 08:03
Laboratory Results
05/03/24
13:46
APTT 173.2 H*
Microbiology
04/28/24 10:52 Blood/Venous Blood Culture - Final
No Growth - Final Report
04/28/24 10:34 Blood/Venous Blood Culture - Final
No Growth - Final Report
[2024-05-04 11:25] VITALS: BP 159/93
[2024-05-04 11:55] VITALS: BP 159/93
--- NOTE | 2024-05-04 13:04 | W.PN.HOSP.TC ---
Today's Communication/Plan
-
discharge after home O2 set up
Assessment / Plan
Assessment / Plan
78-year-old female admitted overnight with shortness of breath. She has had a cough also had some hemoptysis. Patient stated that her granddaughter was sick with pneumonia
Patient was diagnosed with bilateral PE in the ER. She then went into SVT required 2 doses of adenosine and then rhythm looked like A-fib was given diltiazem bolus as well as a drip was started. Patient complained of right-sided rib pain and was
very short of breath. IV fluids were started.
Impression:
Acute hypoxic respiratory failure secondary to submassive pulmonary embolism, right pulmonary infarct.
Submassive bilateral pulmonary embolism without saddle emboli.
Left lower extremity DVT
Right lower lobe infiltrate secondary to pulmonary infarct.
Could not exclude community-acquired pneumonia.
Atrial fibrillation with rapid ventricular response, new onset
Lactic acidosis.
Reactive leukocytosis.
Acute kidney injury
Acute urinary retention requiring Young catheter.
Right iliac us muscle hematoma
Conditions prior to admission:
COPD
GERD.
Essential hypertension.
Restless leg syndrome
Former smoker.
Prior history of hysterectomy.
Plan:
Acute hypoxic respiratory failure secondary to submassive pulmonary embolism, right pulmonary infarct, possibly/could not rule out pneumonia.
Respiratory status improved and stable.
Oxygen requirements improved down to 2 L.
Patient is in need of oxygen at 2 liters/minute via nasal cannula continuously due to pulse oximetry of 87% on room air at rest. Oxygen will help to improve hypoxemia. Patient is mobile within the home. DuoNeb therapy has been tried and is
ineffective in treating hypoxemia related symptoms. Oxygen is needed to improve symptoms.
Acute PE, submassive.
Left lower extremity DVT
Unprovoked.
Hemodynamically stable.
In review with interventional radiology it was no clear clinical indication for lytic treatment. Given the relative stability as well as no central emboli
Echocardiogram with preserved LV function LVEF 70 near 75%. Mild dilation of right ventricle. RV free wall hypokinesis with preserved function. PA pressure 46 mmHg.
Transition off heparin to Eliquis on 05/03
Right lower lobe infiltrate suspect pulmonary infarct
Could not rule out infection/pneumonia.
Adjust analgesic regimen.
Incentive spirometry.
Plan is to complete 5-day course of antibiotics
Continue systemic corticosteroid. Transitioned to prednisone on 05/01 for slow taper
Paroxysmal atrial fibrillation.
New onset.
Initiated on IV Cardizem drip and converted to sinus rhythm.
Continue metoprolol for rate control
Cardiology following
Anticoagulation as above.
Right iliacus us muscle hematoma confirmed with CT scan. Secondary to systemic anticoagulation
Hemoglobin remained stable while being on IV heparin
Monitor hemoglobin closely.
Continue IV heparin with caution with plan to transition to oral anticoagulation if stable over the next 24 to 48 hours
Acute kidney injury
Suspect multifactorial due to prerenal stimuli with relative hypotension and acute PE as well as component of retention.
Young catheter inserted on 04/28
Hydration, currently off IV fluids encourage oral intake
Hopefully voiding trial later on 04/29 and with increase activity
GERD
Continue GI prophylaxis with PPI
Essential hypertension baseline preadmission regimen metoprolol, lisinopril, hydrochlorothiazide
Metoprolol dose adjustment for A-fib baseline holding ramipril and HCTZ given marginal BP.
Restless leg syndrome on Requip.
Dyslipidemia on statin
Anticipated Discharge: Today
Subjective/Interval History
-
Date of Service: May 04, 2024
Objective Data
-
Labs:
Laboratory Results
05/04/24
08:03
WBC 13.2 H
Hgb 13.9
Hct 41.0
Plt Count 240
Sodium 132 L
Potassium 3.9
Chloride 101
Carbon Dioxide 24
BUN 30 H
Creatinine 0.9
Glucose 74
Calcium 9.2
Vital Signs:
Vital Signs
Temp Pulse Resp BP Pulse Ox
98.3 F 79 18 159/93 95
05/04/24 11:25 05/04/24 11:25 05/04/24 11:25 05/04/24 11:25 05/04/24 11:25
I&O
05/03/24 05/04/24 05/05/24
06:59 06:59 06:59
Intake Total 120 / 120 720 / 720 240 / 240
Output Total 1300 / 1300 300 / 300 250 / 250
Balance -1180 / -1180 420 / 420 -10 / -10
Physical Exam
-
General: Well Developed and No Apparent Distress
HEENT: Normocephalic, Atraumatic and Moist Mucous Membranes
Respiratory: Clear to Auscultation and Decreased Breath Sounds
Cardiac: Regular Rhythm and S1/S2; Negative Murmur, Rub or Gallop
GI: Soft, Nontender, Nondistended and Normal Bowel Sounds; Negative Organomegaly
Rectal: Deferred by Provider
Genito-urinary: Young
Musculoskeletal: No Clubbing, No Cyanosis and No Edema
Skin: Negative Rash
Neuro: Nonfocal/Grossly Intact
--- NOTE | 2024-05-04 13:17 | W.DS.TRANS ---
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
-
Discharge Instructions:
Discharge Diagnosis/Procedures Acute hypoxic respiratory failure secondary to
submassive pulmonary embolism, right pulmonary
infarct.
Submassive bilateral pulmonary embolism without
saddle emboli.
Left lower extremity DVT
Right lower lobe infiltrate secondary to
pulmonary infarct.
Could not exclude community-acquired pneumonia.
Atrial fibrillation with rapid ventricular
response, new onset
Lactic acidosis.
Reactive leukocytosis.
Acute kidney injury
Acute urinary retention requiring Young catheter
.
Right iliac us muscle hematoma
Diet Regular
Others Tests CXR in 3-4 weeks to follow with right lower lobe
inf and pleural effusion
Instructions:
Stand-Alone Forms:
Changes to Home Medications: Yes
Discharge Medications:
DC Medications w/original date entered in [facility]
ropinirole 1 mg tablet 5 mg PO HS Neurological Condition 07/24/11
fluoxetine 10 mg capsule 10 mg PO DAILY Mental Health/Anxiety 05/05/21
hydrochlorothiazide 25 mg tablet 25 mg PO DAILY Blood Pressure 05/05/21
ramipril 10 mg capsule 10 mg PO DAILY Blood Pressure 05/05/21
rosuvastatin 20 mg tablet 20 mg PO QPM High Cholesterol 04/28/24
albuterol sulfate 90 mcg/actuation aerosol inhaler 2 puff inhalation Q6H PRN shortness of breath or wheezing #8.5 grams 05/04/24
apixaban 5 mg tablet (Eliquis) 10 mg (2 x 5 mg) PO BID #30 tabs 05/04/24
metoprolol succinate 100 mg tablet,extended release 24 hr 50 mg (1/2 x 100 mg) PO DAILY #60 tabs 05/04/24
metoprolol succinate 50 mg tablet,extended release 24 hr 50 mg PO HS #30 tabs 05/04/24
pantoprazole 40 mg tablet,delayed release 40 mg PO DAILY #30 tabs 05/04/24
Home Medication Changes
Eliquis started.
Toprol increased
Pending Results: No
[2024-05-04 15:04] VITALS: BP 122/73
--- NOTE | 2024-05-05 08:37 | CM ---
Late note from 05/04/2024:
CM met with Joy at bedside. Plan for discharge to home with O2. Order and additional clinical information sent to [facility] for O2, however pt's insurance was out of network. Order then sent to [facility] and O2 delivered bedside.
Pt requests [facility] for VN; referral sent in [facility] and accepted for services.
[employer] $10 copay card provided.
Joy was discharged to home with O2 and [facility] services. IMM issued, signed, placed on chart and copy provided to patient.
== END 2024-05-04 16:41 | disposition home health service (06) | DRG 175 ==
LOC: 4 EAST ACU 07:59
PROVIDERS: Hospitalist; Internal Medicine; Nurse Practitioner Family; ADMITTING PHYSICIAN Internal Medicine; ATTENDING PHYSICIAN Internal Medicine; CONSULT PHYSICIAN Internal Medicine Critical Care Medicine; EMERGENCY PHYSICIAN Emergency Medicine; OTHER PHYSICIAN Internal Medicine Cardiovascular Disease
DX: I26.99 Other pulmonary embolism without acute cor pulmonale (principal); J18.9 Pneumonia, unspecified organism; J96.01 Acute respiratory failure with hypoxia; N17.9 Acute kidney failure, unspecified; E87.20 Acidosis, unspecified; I5A Non-ischemic myocardial injury (non-traumatic); I47.10 Supraventricular tachycardia, unspecified; J44.0 Chronic obstructive pulmonary disease with (acute) lower respiratory infection; I82.402 Acute embolism and thrombosis of unspecified deep veins of left lower extremity; Z66 Do not resuscitate; I10 Essential (primary) hypertension; K21.9 Gastro-esophageal reflux disease without esophagitis; E78.00 Pure hypercholesterolemia, unspecified; J43.9 Emphysema, unspecified; F32.A Depression, unspecified; I48.0 Paroxysmal atrial fibrillation; I27.20 Pulmonary hypertension, unspecified; R33.8 Other retention of urine; M79.81 Nontraumatic hematoma of soft tissue; T45.515A Adverse effect of anticoagulants, initial encounter; Z88.5 Allergy status to narcotic agent; Z87.891 Personal history of nicotine dependence; Z86.718 Personal history of other venous thrombosis and embolism; Z79.899 Other long term (current) drug therapy; G25.81 Restless legs syndrome; Z79.82 Long term (current) use of aspirin; Z79.52 Long term (current) use of systemic steroids; Z11.52 Encounter for screening for COVID-19
CPT/HCPCS: 36600; 71045; 71046; 71275; 74176; 80048; 80053; 82805; 83605; 83735; 83880; 84484; 85014; 85018; 85025; 85027; 85610; 85730; 87040; 87502; 87807; 87811; 93005; 93306; 93970; 94640; 96361; 96374; 96376; 97116; 97163; 97167; 97530; 99291; 99292; J0153; Q9967

== ENCOUNTER → 2024-07-21 10:03 | Outpatient (REF) | payer OTHER, SELFPAY | LOC: RCS 10:03 | PROVIDERS: ATTENDING PHYSICIAN Internal Medicine Cardiovascular Disease; FAMILY PHYSICIAN Internal Medicine | DX: I51.9 Heart disease, unspecified (principal) | CPT/HCPCS: 93306 ==